=== PATIENT | male | born 1980 | race Asian ===

== ENCOUNTER 2020-06-03 12:13 | Outpatient (REF) | payer OTHER, SELFPAY ==
[2020-06-03 14:27] LABS: Alanine Aminotransferase 22 U/L (0-40); Albumin Level 4.8 g/dL (3.5-5.0); Alkaline Phosphatase 44 U/L (39-117); Anion Gap 14 (12-20); Aspartate Amino Transferase 20 U/L (5-37); Bilirubin Total 0.8 mg/dL (0.0-1.0); Blood Urea Nitrogen 14 mg/dL (9-16); Calcium 9.5 mg/dL (8.4-10.2); Carbon Dioxide 29 mmol/L (22-29); Chloride 100 mmol/L (96-108); Estimated Glomerular Filt Rate > 60; Glucose Random 121 mg/dL (60-115); Potassium 4.5 mmol/l (3.3-5.1); Sodium 138 mmol/L (135-145); Total Protein 7.6 g/dL (6.5-8.0)
[2020-06-03 14:45] LABS: Estimated Average Glucose 163 mg/dL; Hemoglobin A1c % 7.3 %
== END 2020-06-03 12:14 | disposition home or self-care (01) ==
LOC: HO.HMGCLDS 12:13
PROVIDERS: PCP Internal Medicine; Visit Provider Internal Medicine
DX: E11.9 Type 2 diabetes mellitus without complications (principal); I10 Essential (primary) hypertension; M10.9 Gout, unspecified; E78.5 Hyperlipidemia, unspecified
CPT/HCPCS: 80053; 83036; 84550

== ENCOUNTER 2020-10-06 07:03 | Outpatient (REF) | payer OTHER, SELFPAY ==
[2020-10-06 11:46] LABS: Estimated Average Glucose 160 mg/dL; Hemoglobin A1c % 7.2 %
[2020-10-06 12:03] LABS: Microalbum/Creatinine Ratio Ur 9.1 ug/mg cr
[2020-10-06 12:28] LABS: Alanine Aminotransferase 19 U/L (0-40); Alkaline Phosphatase 55 U/L (39-117); Anion Gap 16 (12-20); Aspartate Amino Transferase 14 U/L (5-37); Bilirubin Direct < 0.2 mg/dL (0.0-0.5); Bilirubin Total 0.3 mg/dL (0.0-1.0); Blood Urea Nitrogen 13 mg/dL (9-16); Calcium 10.2 mg/dL (8.4-10.2); Carbon Dioxide 28 mmol/L (22-29); Chloride 102 mmol/L (96-108); Cholesterol 163 mg/dL; Estimated Glomerular Filt Rate > 60; Glucose Fasting 102 mg/dL (60-99); HDL Cholesterol 61 mg/dL; LDL Cholesterol Calculated 66 mg/dl; Potassium 4.5 mmol/L (3.3-5.1); Sodium 141 mmol/L (135-145); Total Protein 7.9 g/dL (6.5-8.0); Triglycerides 184 mg/dL
== END 2020-10-06 07:04 | disposition home or self-care (01) ==
LOC: HO.HMGCLDS 07:03
PROVIDERS: PCP Internal Medicine; Visit Provider Internal Medicine
DX: E78.9 Disorder of lipoprotein metabolism, unspecified (principal); E13.9 Other specified diabetes mellitus without complications; I10 Essential (primary) hypertension; M10.9 Gout, unspecified
CPT/HCPCS: 36415; 80048; 80061; 80076; 82043; 83036

== ENCOUNTER 2020-11-18 09:34 | Outpatient (REF) | payer OTHER, SELFPAY ==
--- NOTE | ~2020-11-18 | XR_ITS ---
EXAMINATION: XR ELBOW, RIGHT CLINICAL INFORMATION: Injury lifting weights. Unable to bend elbow. COMPARISON: None TECHNIQUE: AP, lateral, and oblique views of the right elbow. FINDINGS: No acute fracture or dislocation. No joint space narrowing or marginal osteophytes. No large joint effusion; however, evaluation is limited secondary to patient position. Prominent soft tissue swelling posteriorly with significant soft tissue edema. Findings could indicate a distal triceps tendon injury. XR/XR elbow RT min 3V IMPRESSION: Prominent posterior soft tissue swelling with associated edema. Findings could indicate an underlying distal triceps tendon injury. No acute osseous abnormality.
== END 2020-11-18 09:35 | disposition home or self-care (01) ==
LOC: HO.HMGCX 09:34
PROVIDERS: PCP Internal Medicine; Visit Provider Nurse Practitioner Family
DX: S59.901A Unspecified injury of right elbow, initial encounter (principal); X58.XXXA Exposure to other specified factors, initial encounter; Y93.79 Activity, other specified sports and athletics; Y92.9 Unspecified place or not applicable; Y99.9 Unspecified external cause status
CPT/HCPCS: 73080

== ENCOUNTER → 2020-11-26 10:24 | Outpatient (BNVA) | payer OTHER, SELFPAY | PROVIDERS: PCP Internal Medicine; Visit Provider Physician Assistant ==

== ENCOUNTER 2021-01-06 13:40 | Outpatient (REF) | payer OTHER, SELFPAY ==
[2021-01-06 17:01] LABS: Alanine Aminotransferase 24 U/L (0-40); Albumin Level 4.9 g/dL (3.5-5.0); Alkaline Phosphatase 66 U/L (39-117); Anion Gap 13 (12-20); Aspartate Amino Transferase 18 U/L (5-37); Bilirubin Total 0.5 mg/dL (0.0-1.0); Blood Urea Nitrogen 17 mg/dL (9-16); Calcium 9.8 mg/dL (8.4-10.2); Carbon Dioxide 27 mmol/L (22-29); Chloride 103 mmol/L (96-108); Estimated Glomerular Filt Rate > 60; Glucose Random 147 mg/dL (60-115); Potassium 4.4 mmol/L (3.3-5.1); Sodium 139 mmol/L (135-145); Total Protein 7.8 g/dL (6.5-8.0)
[2021-01-06 17:03] LABS: Estimated Average Glucose 163 mg/dL; Hemoglobin A1c % 7.3 %
== END 2021-01-06 13:41 | disposition home or self-care (01) ==
LOC: HO.HMGCLDS 13:40
PROVIDERS: PCP Internal Medicine; Visit Provider Internal Medicine
DX: E78.9 Disorder of lipoprotein metabolism, unspecified (principal); E13.9 Other specified diabetes mellitus without complications; I10 Essential (primary) hypertension; M10.9 Gout, unspecified
CPT/HCPCS: 36415; 80053; 83036

== ENCOUNTER 2021-07-08 09:14 | Outpatient (REF) | payer BC, SELFPAY ==
[2021-07-08 11:41] LABS: Estimated Average Glucose 189 mg/dL; Hemoglobin A1c % 8.2 %
[2021-07-08 12:02] LABS: Alanine Aminotransferase 85 U/L (0-40); Albumin Level 5.1 g/dL (3.5-5.0); Alkaline Phosphatase 55 U/L (39-117); Anion Gap 17 (12-20); Aspartate Amino Transferase 53 U/L (5-37); Bilirubin Total 0.5 mg/dL (0.0-1.0); Blood Urea Nitrogen 14 mg/dL (9-16); Calcium 10.3 mg/dL (8.4-10.2); Carbon Dioxide 24 mmol/L (22-29); Chloride 101 mmol/L (96-108); Estimated Glomerular Filt Rate > 60; Glucose Random 123 mg/dL (60-115); Potassium 4.3 mmol/L (3.3-5.1); Sodium 138 mmol/L (135-145); Total Protein 8.3 g/dL (6.5-8.0)
== END 2021-07-08 09:15 | disposition home or self-care (01) ==
LOC: HO.HMGCLDS 09:14
PROVIDERS: PCP Internal Medicine; Visit Provider Internal Medicine
DX: E13.9 Other specified diabetes mellitus without complications (principal); E78.9 Disorder of lipoprotein metabolism, unspecified; I10 Essential (primary) hypertension
CPT/HCPCS: 36415; 80053; 83036

== ENCOUNTER 2021-10-27 07:06 | Outpatient (REF) | payer BC, SELFPAY ==
[2021-10-27 11:33] LABS: MANUAL DIFF FLAG NO
[2021-10-27 11:43] LABS: Basophils Absolute Auto 0.1 X10*3/uL (0.0-0.2); Basophils Percent Auto 0.7 % (0-2); Eosinophils Percent Auto 0.4 % (0-4); Hematocrit 49.1 % (42.0-52.0); Hemoglobin 16.4 g/dl (14.0-18.0); Imm Gran Abs Auto 0.02 X10*3/uL (0.00-0.03); Imm Gran Pct Auto 0.3 % (0.0-0.4); Lymphocytes Absolute Auto 3.3 X10*3/uL (1.2-4.9); Lymphocytes Percent Auto 47.2 % (20-40); Mean Corpuscular HGB Conc 33.4 g/dl (31.0-36.0); Mean Corpuscular Volume 83.9 fL (80.0-98.0); Mean Platelet Volume 11.1 fL (9.4-12.4); Monocytes Absolute Auto 0.4 X10*3/uL (0.1-1.2); Monocytes Percent Auto 5.6 % (2-11); Neutrophils Absolute Auto 3.2 x10*3/uL (2.0-8.3); Neutrophils Percent Auto 45.8 % (45-73); Platelet Count 261 X10*3/uL (160-400); Red Blood Count 5.85 X10*6/uL (4.60-5.80); Red Cell Distribution Width 13.2 % (11.0-16.0)
[2021-10-27 12:06] LABS: Alanine Aminotransferase 63 U/L (0-40); Albumin Level 4.9 g/dL (3.5-5.0); Alkaline Phosphatase 49 U/L (39-117); Anion Gap 14 (12-20); Aspartate Amino Transferase 49 U/L (5-37); Bilirubin Total 0.5 mg/dL (0.0-1.0); Blood Urea Nitrogen 11 mg/dL (9-16); Calcium 10.1 mg/dL (8.4-10.2); Carbon Dioxide 28 mmol/L (22-29); Chloride 103 mmol/L (96-108); Cholesterol 227 mg/dL; Estimated Glomerular Filt Rate > 60; Glucose Fasting 134 mg/dL (60-99); HDL Cholesterol 60 mg/dL; LDL Cholesterol Calculated 137 mg/dl; Potassium 4.4 mmol/L (3.3-5.1); Sodium 141 mmol/L (135-145); Total Protein 7.8 g/dL (6.5-8.0); Triglycerides 154 mg/dL
[2021-10-27 12:15] LABS: Estimated Average Glucose 180 mg/dL; Hemoglobin A1c % 7.9 %
[2021-10-27 12:20] LABS: Creatinine Urine 189.63 mg/dL; Microalbum/Creatinine Ratio Ur 35.3 ug/mg cr
[2021-11-01 12:45] LABS: Vitamin D 25-OH, D2 <4 ng/mL; Vitamin D 25-OH, D3 25 ng/mL; Vitamin D 25-OH, Total 25 ng/mL (30-100)
== END 2021-10-27 07:07 | disposition home or self-care (01) ==
LOC: HO.HMGCLDS 07:06
PROVIDERS: Visit Provider Internal Medicine
DX: E13.9 Other specified diabetes mellitus without complications (principal); E78.9 Disorder of lipoprotein metabolism, unspecified; I10 Essential (primary) hypertension; M10.9 Gout, unspecified
CPT/HCPCS: 36415; 80053; 80061; 82043; 82306; 83036; 85025

== ENCOUNTER 2022-03-05 10:51 | Outpatient (REF) | payer BC, SELFPAY ==
[2022-03-05 12:16] LABS: Alanine Aminotransferase 70 U/L (0-40); Alkaline Phosphatase 51 U/L (39-117); Anion Gap 15 (12-20); Aspartate Amino Transferase 57 U/L (5-37); Bilirubin Total 0.7 mg/dL (0.0-1.0); Blood Urea Nitrogen 14 mg/dL (9-16); Calcium 9.5 mg/dL (8.4-10.2); Carbon Dioxide 27 mmol/L (22-29); Chloride 103 mmol/L (96-108); Cholesterol 175 mg/dL; Estimated Glomerular Filt Rate > 60; Glucose Fasting 101 mg/dL (60-99); HDL Cholesterol 50 mg/dL; LDL Cholesterol Calculated 90 mg/dl; Sodium 141 mmol/L (135-145); Total Protein 7.8 g/dL (6.5-8.0); Triglycerides 179 mg/dL
[2022-03-05 12:17] LABS: Estimated Average Glucose 171 mg/dL; Hemoglobin A1c % 7.6 %
[2022-03-05 12:48] LABS: Creatinine Urine 217.19 mg/dL; Microalbum/Creatinine Ratio Ur 12.8 ug/mg cr
== END 2022-03-05 10:52 | disposition home or self-care (01) ==
LOC: HO.HMGCLDS 10:51
PROVIDERS: PCP Internal Medicine; Visit Provider Internal Medicine
DX: E78.9 Disorder of lipoprotein metabolism, unspecified (principal); I10 Essential (primary) hypertension; E13.9 Other specified diabetes mellitus without complications
CPT/HCPCS: 36415; 80053; 80061; 82043; 83036

== ENCOUNTER 2022-07-07 07:10 | Outpatient (REF) | payer BC, SELFPAY ==
[2022-07-07 11:44] LABS: Estimated Average Glucose 200 mg/dL; Hemoglobin A1c % 8.6 %
[2022-07-07 11:51] LABS: Alanine Aminotransferase 56 U/L (0-40); Alkaline Phosphatase 61 U/L (39-117); Anion Gap 15 (12-20); Aspartate Amino Transferase 42 U/L (5-37); Bilirubin Total 0.4 mg/dL (0.0-1.0); Blood Urea Nitrogen 14 mg/dL (9-16); Carbon Dioxide 27 mmol/L (22-29); Chloride 103 mmol/L (96-108); Estimated Glomerular Filt Rate > 60; Glucose Random 91 mg/dL (60-115); Potassium 4.1 mmol/L (3.3-5.1); Sodium 141 mmol/L (135-145); Total Protein 7.7 g/dL (6.5-8.0)
== END 2022-07-07 07:11 | disposition home or self-care (01) ==
LOC: HO.HMGCLDS 07:10
PROVIDERS: PCP Internal Medicine; Visit Provider Internal Medicine
DX: E13.9 Other specified diabetes mellitus without complications (principal); I10 Essential (primary) hypertension; E78.9 Disorder of lipoprotein metabolism, unspecified; R79.89 Other specified abnormal findings of blood chemistry; E66.09 Other obesity due to excess calories; M10.9 Gout, unspecified
CPT/HCPCS: 36415; 80053; 83036

== ENCOUNTER 2022-11-08 07:04 | Outpatient (REF) | payer BC, SELFPAY ==
[2022-11-08 11:35] LABS: Alanine Aminotransferase 42 U/L (0-40); Albumin Level 4.8 g/dL (3.5-5.0); Alkaline Phosphatase 57 U/L (39-117); Anion Gap 17 (12-20); Aspartate Amino Transferase 28 U/L (5-37); Bilirubin Total 0.7 mg/dL (0.0-1.0); Blood Urea Nitrogen 15 mg/dL (9-16); Calcium 9.8 mg/dL (8.4-10.2); Carbon Dioxide 26 mmol/L (22-29); Chloride 101 mmol/L (96-108); Cholesterol 158 mg/dL; Estimated Glomerular Filt Rate > 60; Glucose Fasting 190 mg/dL (60-99); HDL Cholesterol 52 mg/dL; LDL Cholesterol Calculated 80 mg/dl; Sodium 140 mmol/L (135-145); Total Protein 7.3 g/dL (6.5-8.0); Triglycerides 132 mg/dL
[2022-11-08 11:54] LABS: Estimated Average Glucose 206 mg/dL; Hemoglobin A1c % 8.8 %
== END 2022-11-08 07:05 | disposition home or self-care (01) ==
LOC: HO.HMGCLDS 07:04
PROVIDERS: PCP Internal Medicine; Visit Provider Internal Medicine
DX: E66.09 Other obesity due to excess calories (principal); E13.9 Other specified diabetes mellitus without complications; E78.9 Disorder of lipoprotein metabolism, unspecified; I10 Essential (primary) hypertension; M10.9 Gout, unspecified; R79.89 Other specified abnormal findings of blood chemistry
CPT/HCPCS: 36415; 80053; 80061; 83036

== ENCOUNTER 2023-03-07 07:07 | Outpatient (REF) | payer BC, SELFPAY ==
[2023-03-07 12:12] LABS: Estimated Average Glucose 166 mg/dL; Hemoglobin A1c % 7.4 %
[2023-03-07 12:20] LABS: Alanine Aminotransferase 41 U/L (0-40); Albumin Level 4.5 g/dL (3.5-5.0); Alkaline Phosphatase 52 U/L (39-117); Anion Gap 14 (12-20); Aspartate Amino Transferase 23 U/L (5-37); Bilirubin Total 0.3 mg/dL (0.0-1.0); Blood Urea Nitrogen 12 mg/dL (9-16); Calcium 9.4 mg/dL (8.4-10.2); Carbon Dioxide 24 mmol/L (22-29); Chloride 106 mmol/L (96-108); Estimated Glomerular Filt Rate > 60; Glucose Random 135 mg/dL (60-115); Sodium 140 mmol/L (135-145); Total Protein 7.6 g/dL (6.5-8.0)
== END 2023-03-07 07:08 | disposition home or self-care (01) ==
LOC: HO.HMGCLDS 07:07
PROVIDERS: PCP Internal Medicine; Visit Provider Internal Medicine
DX: I10 Essential (primary) hypertension (principal); M10.9 Gout, unspecified; E13.9 Other specified diabetes mellitus without complications; E78.9 Disorder of lipoprotein metabolism, unspecified; E66.09 Other obesity due to excess calories
CPT/HCPCS: 36415; 80053; 83036

== ENCOUNTER 2023-03-11 11:42 | Outpatient (AMB) | payer BC, SELFPAY ==
[2023-03-11 11:49] VITALS: BP 122/80; PULSE 107; O2SAT 96; BMI 32.8
--- NOTE | 2023-03-11 11:49 | MHC.PC.OV ---
Vital Signs 03/11/23 11:49 Height 5 ft 3 in Weight 185 lb 6 oz BMI 32.8 BP 122/80 Blood Pressure Location Rt brachial Position Sitting Pulse 107 H Pulse Source Pulse Oximeter Pulse Oximetry (%) 96 Oxygen Delivery Method Room Air Intake Visit Reasons: 4m follow up Allergies No Known Allergies [No Known Allergies*] Allergy (Verified 03/11/23 11:49) Medication List - Last Reconciled 03/11/23 by Abdelrahman Clayton MD allopurinol 300 mg PO DAILY atorvastatin 20 mg PO DAILY 90 days glipizide 5 mg PO BID 90 days lisinopril 20 mg PO DAILY 90 days metformin 1,000 mg PO BID Tobacco use date assessed: 03/11/23 Dental Screening Dental Screen Date: 03/11/23 Did you have a dental visit in the last 12 months?: Yes Did you have a dental problem in the last 6 months where you did not have access to dental care?: No Was dental information given to patient?: No HPI 4m follow up HPI Details Patient is 42-year-old male this is were month follow-up appointment Diabetes mellitus: Continue metformin 1 g 2 times a day and glipizide to 2 tablets in the morning and 1 at night Hemoglobin A1c has improved to 7.4 Lipid disorder: Continue atorvastatin 20 mg and tolerating it Hypertension: Continue lisinopril 20 mg blood pressure is very well controlled Continue allopurinol as a gout prevention and continue vitamin-D. No gout attacks Follow-up 4 months labs to be done before visit nonfasting [facility] Medical History Diabetes 1.5, managed as type 2 Gout Hypertension, essential Lipid disorder Family History Maternal Grandmother Diabetes mellitus Social History Housing: House Alcohol intake: current Alcohol intake frequency: holidays/special occasions only Patient Tobacco Use Status: Never used Tobacco e-Cigarette/Vaping Use: Never Used Current occupational status: employed Current occupation: [employer] Cognitive needs: No Hearing needs: No Vision needs: Yes Questionnaire PHQ-9 Over the last 2 weeks, how often have you been bothered by any of the following problems? 1. Little interest or pleasure in doing things: not at all 2. Feeling down, depressed, or hopeless: not at all 3. Trouble falling or staying asleep, or sleeping too much: several days 4. Feeling tired or having little energy: several days 5. Poor appetite or overeating: several days 6. Feeling bad about yourself - or that you are a failure or have let yourself or your family down: not at all 7. Trouble concentrating on things, such as reading the newspaper or watching television: not at all 8. Moving or speaking so slowly that other people could have noticed. Or the opposite - being so fidgety or restless that you have been moving around a lot more than usual: not at all 9. Thoughts that you would be better off or of hurting yourself in some way: not at all Total score: 3 Depression Screening Interpretation: Negative 33130 - PHQ-9 Billing: Yes Source: Developed by Drs. Antoine June, Susan Phillips, Tico Plummer and colleagues, with an educational meliza from [employer]. Thrive Questionnaire Date Thrive assessed: 03/11/23 I am a: Patient What is your living situation today?: I have a steady place to live Within the past 12 months, did the food you bought not last and you didn't have the money to get more?: Never true Within the past 12 months, did you worry whether your food would run out before you got money to buy more?: Never true Do you have trouble paying for medicines?: No Do you have trouble getting transportation to medical appointments?: No Do you have trouble paying your heating and electricity bill?: No Do you have trouble taking care of your child, family member or friend?: No Do you have trouble with day-to-day activities such as bathing, preparing meals, shopping, managing finances, etc.?: No Are you currently unemployed and looking for a job?: No Are you interested in more education?: No AUDIT C Alcohol Use Questionnaire (AUDIT-C) 1. How often do you have a drink containing alcohol?: Never 3. How often do you have six or more drinks on one occasion?: Never Total Score: 0 Score Reviewed/Action Taken: Yes COLT-7 AMB Questionnaire COLT-7 Date COLT - 7 assessed: 03/11/23 Feeling nervous, anxious, or on edge: 0 = Not at all Not being able to stop or control worryin = Not at all Worrying too much about different things: 0 = Not at all Trouble relaxin = Not at all Being so restless that it is hard to sit still: 0 = Not at all Becoming easily annoyed or irritable: 0 = Not at all Feeling afraid as if something awful might happen: 0 = Not at all Total COLT-7 score (0-4 normal; 5-9 mild; 10-14 moderate; 15-21 severe): 0 Source: Developed by Drs. Antoine June, Susan Phillips, Tico Plummer and colleagues, with an educational meliza from [employer]. COLT-7 Assessment Billing COLT-7 Assessment Tool: COLT-7 Assessment 62764 Review of Systems Const Denies chills and Denies fever(s) ENT Denies epistaxis and Denies nasal discharge Card Denies chest pain Resp Denies chest congestion, Denies cough and Denies hemoptysis GI Denies diarrhea and Denies nausea Skin/Breast Denies rash Neuro Reports no additional complaints Psych Reports no additional complaints Endo Reports no additional complaints Physical exam (Primary Care) Vital Signs: Last Vital Signs Pulse 107 H 03/11/23 11:49 BP 122/80 03/11/23 11:49 Pulse Ox 96 03/11/23 11:49 Oxygen Delivery Method Room Air 03/11/23 11:49 BMI result Body Mass Index 32.8 Tobacco/Smoking Status: Tobacco use Status Tobacco use date assessed 03/11/23 03/11/23 11:50 Patient Tobacco Use Status Never used Tobacco 03/11/23 11:50 e-Cigarette/Vaping Use Never Used 03/11/23 11:50 PHQ-9: PHQ-9 Score PHQ-9: Total score 3 03/11/23 12:07 Depression Screening Interpretation: Negative Thrive Assessment: Date of Thrive Assessment Date Thrive assessed 03/11/23 03/11/23 12:07 Const General: cooperative, comfortable and no acute distress Orientation/consciousness: patient oriented x3 HENMT Head: Yes normocephalic Eyes General: appearance normal, both eyes and all related structures Neck Neck: Yes supple Resp Effort & Inspection: normal respiratory effort, no cough and no stridor Cardio Rhythm: regular rhythm Heart sounds: S1 normal heart sound present and S2 normal heart sound present Skin General skin exam: turgor normal Neuro General: patient oriented x3, tone normal and moves all extremities Extrem Right lower extremity: no edema Left lower extremity: no edema Assessment and Plan Assessment & Plan (1) Hypertension, essential: Code(s): I10 - Essential (primary) hypertension (2) Diabetes 1.5, managed as type 2: Code(s): E13.9 - Other specified diabetes mellitus without complications (3) Gout: Code(s): M10.9 - Gout, unspecified (4) Lipid disorder: Code(s): E78.9 - Disorder of lipoprotein metabolism, unspecified (5) Obesity due to excess calories: Code(s): E66.09 - Other obesity due to excess calories Plan Patient is 42-year-old male this is were month follow-up appointment Diabetes mellitus: Continue metformin 1 g 2 times a day and glipizide to 2 tablets in the morning and 1 at night Hemoglobin A1c has improved to 7.4 Lipid disorder: Continue atorvastatin 20 mg and tolerating it Hypertension: Continue lisinopril 20 mg blood pressure is very well controlled Continue allopurinol as a gout prevention and continue vitamin-D. No gout attacks Follow-up 4 months labs to be done before visit nonfasting Orders: Orders Comprehensive Met. Panel 3 Months E13.9 - Other specified diabetes mellitus without complications, E66.09 - Other obesity due to excess calories, E78.9 - Disorder of lipoprotein metabolism, unspecified, I10 - Essential (primary) hypertension, M10.9 - Gout, unspecified Hemoglobin A1c 3 Months E13.9 - Other specified diabetes mellitus without complications, E66.09 - Other obesity due to excess calories, E78.9 - Disorder of lipoprotein metabolism, unspecified, I10 - Essential (primary) hypertension, M10.9 - Gout, unspecified Coding Level of Care Code Est Pt Level 4 (82643) Diagnoses Hypertension, essential I10 Diabetes 1.5, managed as type 2 E13.9 Gout M10.9 Lipid disorder E78.9 Obesity due to excess calories E66.09 Additional Codes COLT-7 Assessment Billing - COLT-7 Assessment Tool: COLT-7 Assessment 54210 ([id number])
== END 2023-03-11 12:07 | disposition home or self-care (01) ==
PROVIDERS: PCP Internal Medicine; Visit Provider Internal Medicine
DX: I10 Essential (primary) hypertension (principal); E13.9 Other specified diabetes mellitus without complications; E66.09 Other obesity due to excess calories; Z68.32 Body mass index [BMI] 32.0-32.9, adult; M10.9 Gout, unspecified; E78.9 Disorder of lipoprotein metabolism, unspecified
CPT/HCPCS: 99214

== ENCOUNTER 2023-07-11 06:43 | Outpatient (REF) | payer BC, SELFPAY ==
[2023-07-11 11:57] LABS: Estimated Average Glucose 203 mg/dL; Hemoglobin A1c % 8.7 % (<6.0)
[2023-07-11 12:15] LABS: Alanine Aminotransferase 53 U/L (0-40); Albumin Level 4.8 g/dL (3.5-5.0); Alkaline Phosphatase 55 U/L (39-117); Anion Gap 14 (12-20); Aspartate Amino Transferase 34 U/L (5-37); Bilirubin Total 0.5 mg/dL (0.0-1.0); Blood Urea Nitrogen 14 mg/dL (9-16); Calcium 9.5 mg/dL (8.4-10.2); Carbon Dioxide 21 mmol/L (22-29); Chloride 102 mmol/L (96-108); Estimated Glomerular Filt Rate > 60; Glucose Random 292 mg/dL (60-115); Sodium 133 mmol/L (135-145)
== END 2023-07-11 06:44 | disposition home or self-care (01) ==
LOC: HO.HMGCLDS 06:43
PROVIDERS: PCP Internal Medicine; Visit Provider Internal Medicine
DX: M10.9 Gout, unspecified (principal); I10 Essential (primary) hypertension; E13.9 Other specified diabetes mellitus without complications; E78.9 Disorder of lipoprotein metabolism, unspecified; E66.09 Other obesity due to excess calories
CPT/HCPCS: 36415; 80053; 83036

== ENCOUNTER 2023-07-12 10:50 | Outpatient (AMB) | payer BC, SELFPAY ==
--- NOTE | 2023-07-12 10:52 | A.OFFPC_ITS ---
Vital Signs 07/12/23 11:00 Height 5 ft 3 in Weight 187 lb 4 oz BMI 33.2 BP 134/86 Blood Pressure Location Rt brachial Position Sitting Pulse 100 Pulse Source Pulse Oximeter Pulse Oximetry (%) 97 Oxygen Delivery Method Room Air Intake Visit Reasons: Annual PE Allergies No Known Allergies [No Known Allergies*] Allergy (Verified 07/12/23 11:02) Medication List - Last Reconciled 07/12/23 by Abdelrahman Clayton MD allopurinol 300 mg PO DAILY atorvastatin 20 mg PO DAILY 90 days glipizide 10 mg PO BID 90 days lisinopril 20 mg PO DAILY 90 days metformin 1,000 mg PO BID Tobacco use date assessed: 07/12/23 Dental Screening Dental Screen Date: 07/12/23 Did you have a dental visit in the last 12 months?: No Did you have a dental problem in the last 6 months where you did not have access to dental care?: No Was dental information given to patient?: No HPI Annual PE HPI Details Physical exam appointment Labs done recently reviewed with the patient Patient is diabetic, currently taking glipizide 10 mg in the morning and 5 at night Hemoglobin A1c has gotten worse in 8 range again, I am increasing glipizide to 10 in the morning and 10 at night His sodium came back at 01:33 we will repeat it again next week Fatty liver: Stable, ALT continued to be slightly elevated. BMI is elevated patient is trying to lose weight. Follow-up 4 months, labs are needed before visit [facility] Medical History Lipid disorder Diabetes 1.5, managed as type 2 Hypertension, essential Gout Family History Maternal Grandmother Diabetes mellitus Social History Housing: House Alcohol intake: current Alcohol intake frequency: holidays/special occasions only Patient Tobacco Use Status: Never used Tobacco e-Cigarette/Vaping Use: Never Used Current occupational status: employed Current occupation: [employer] Cognitive needs: No Hearing needs: No Vision needs: Yes Questionnaire PHQ-9 Over the last 2 weeks, how often have you been bothered by any of the following problems? 1. Little interest or pleasure in doing things: not at all 2. Feeling down, depressed, or hopeless: not at all 3. Trouble falling or staying asleep, or sleeping too much: not at all 4. Feeling tired or having little energy: not at all 5. Poor appetite or overeating: not at all 6. Feeling bad about yourself - or that you are a failure or have let yourself or your family down: not at all 7. Trouble concentrating on things, such as reading the newspaper or watching television: not at all 8. Moving or speaking so slowly that other people could have noticed. Or the opposite - being so fidgety or restless that you have been moving around a lot more than usual: not at all 9. Thoughts that you would be better off or of hurting yourself in some way: not at all Total score: 0 Depression Screening Interpretation: Negative Depression Screening Done: Yes 31885 - PHQ-9 Billing: Yes Source: Developed by Drs. Antoine June, Susan Phillips, Tico Plummer and colleagues, with an educational meliza from [employer]. Thrive Questionnaire Date Thrive assessed: 07/12/23 I am a: Patient What is your living situation today?: I have a steady place to live Within the past 12 months, did the food you bought not last and you didn't have the money to get more?: Never true Within the past 12 months, did you worry whether your food would run out before you got money to buy more?: Never true Do you have trouble paying for medicines?: No Do you have trouble getting transportation to medical appointments?: No Do you have trouble paying your heating and electricity bill?: No Do you have trouble taking care of your child, family member or friend?: No Do you have trouble with day-to-day activities such as bathing, preparing meals, shopping, managing finances, etc.?: No Are you currently unemployed and looking for a job?: No Are you interested in more education?: No Please select the resources that you would like help with: None Currently or been in a relationship where the following occur: no concerns reported AUDIT C Alcohol Use Questionnaire (AUDIT-C) 1. How often do you have a drink containing alcohol?: Never 3. How often do you have six or more drinks on one occasion?: Never Total Score: 0 Score Reviewed/Action Taken: No COLT-7 AMB Questionnaire COLT-7 Date COLT - 7 assessed: 07/12/23 Feeling nervous, anxious, or on edge: 0 = Not at all Not being able to stop or control worryin = Not at all Worrying too much about different things: 0 = Not at all Trouble relaxin = Not at all Being so restless that it is hard to sit still: 0 = Not at all Becoming easily annoyed or irritable: 0 = Not at all Feeling afraid as if something awful might happen: 0 = Not at all Total COLT-7 score (0-4 normal; 5-9 mild; 10-14 moderate; 15-21 severe): 0 Source: Developed by Drs. Antoine June, Susan Phillips, Tico Plummer and colleagues, with an educational meliza from [employer]. COLT-7 Assessment Billing COLT-7 Assessment Tool: COLT-7 Assessment 04455 Review of Systems Const Denies chills, Denies fever(s) and Denies headache(s) Eyes Denies blurry vision ENT Denies headache(s), Denies nasal discharge, Denies nasal obstruction, Denies odynophagia and Denies sinus pain Card Denies chest pain at rest and Denies chest pain with activity Resp Denies cough and Denies hemoptysis GI Denies diarrhea, Denies odynophagia, Denies vomiting and Denies hematemesis Reports as per HPI Musc Denies abnormal gait Skin/Breast Reports as per HPI Neuro Denies Neuro-related abnormal movements, Denies Abnormal speech present, Denies abnormal gait, Denies headache(s) and Denies Sensory deficit (Neuro) Psych Denies mood swings and Denies paranoia Endo Reports as per HPI Vimal/Lymph Reports as per HPI Aller/Immun Reports as per HPI Physical exam (Primary Care) Vital Signs: Last Vital Signs Pulse 100 07/12/23 11:00 BP 134/86 07/12/23 11:00 Pulse Ox 97 07/12/23 11:00 Oxygen Delivery Method Room Air 07/12/23 11:00 BMI result Body Mass Index 33.2 Tobacco/Smoking Status: Tobacco use Status Tobacco use date assessed 07/12/23 07/12/23 11:03 Patient Tobacco Use Status Never used Tobacco 07/12/23 10:53 e-Cigarette/Vaping Use Never Used 07/12/23 10:53 PHQ-9: PHQ-9 Score PHQ-9: Total score 0 07/12/23 11:06 Depression Screening Interpretation: Negative Thrive Assessment: Date of Thrive Assessment Date Thrive assessed 07/12/23 07/12/23 11:06 Currently or been in a relationship where the following occur: no concerns reported Const General: cooperative, comfortable and no acute distress Orientation/consciousness: patient oriented x3 HENMT Head: Yes normocephalic and Yes atraumatic Eyes General: appearance normal, both eyes and all related structures Pupils: Equal, round and reactive pupils present EOM: EOMs intact bilaterally Neck Neck: Yes supple and No lymphadenopathy Thyroid: Thyroid normal Lymphatic: no lymphadenopathy noted Resp Effort & Inspection: normal respiratory effort and able to speak in complete sentences Auscultation: clear to auscultation bilaterally Cardio Heart sounds: S1 normal heart sound present and S2 normal heart sound present GI Palpation (GI): Soft to palpation and nontender Auscultation: normal bowel sounds General: Yes no CVA tenderness Back/Spine/Pelvis Back: no CVA tenderness Skin General skin exam: elasticity normal and turgor normal Neuro General: patient oriented x3 and gait normal Cranial nerves: Yes Equal, round and reactive pupils present Speech: No Abnormal speech present Sensory Exam: No Sensory deficit (Neuro) Coordination: tandem gait normal and Romberg test negative Extrem General: Yes normal exam except as noted and No edema Assessment and Plan Assessment & Plan (1) Encounter for general adult medical examination with abnormal findings: Code(s): Z00.01 - Encounter for general adult medical examination with abnormal findings (2) Diabetes mellitus type 2 in obese: Code(s): E11.69 - Type 2 diabetes mellitus with other specified complication; E66.9 - Obesity, unspecified (3) Hyponatremia: Code(s): E87.1 - Hypo-osmolality and hyponatremia (4) LFT elevation: Code(s): R79.89 - Other specified abnormal findings of blood chemistry (5) Obesity due to excess calories: Code(s): E66.09 - Other obesity due to excess calories Qualifiers: Obesity classification: adult class 1 (BMI 30 - 34.9) Serious obesity comorbidity presence: with serious comorbidity Body mass index: BMI 33.0-33.9 Qualified Code(s): E66.09 - Other obesity due to excess calories; Z68.33 - Body mass index [BMI] 33.0-33.9, adult (6) Lipid disorder: Code(s): E78.9 - Disorder of lipoprotein metabolism, unspecified (7) Hypertension, essential: Code(s): I10 - Essential (primary) hypertension (8) Gout: Code(s): M10.9 - Gout, unspecified Qualifiers: Gout site: unspecified site Gout etiology: idiopathic Chronicity: chronic Presence of tophus: without tophus Qualified Code(s): M1A.00X0 - Idiopathic chronic gout, unspecified site, without tophus (tophi) Plan Physical exam appointment Labs done recently reviewed with the patient Patient is diabetic, currently taking glipizide 10 mg in the morning and 5 at night Hemoglobin A1c has gotten worse in 8 range again, I am increasing glipizide to 10 in the morning and 10 at night His sodium came back at 01:33 we will repeat it again next week Fatty liver: Stable, ALT continued to be slightly elevated. BMI is elevated patient is trying to lose weight. Follow-up 4 months, labs are needed before visit Orders: Orders Hemoglobin A1c 3 Months E11.69 - Type 2 diabetes mellitus with other specified complication, E66.09 - Other obesity due to excess calories, E66.9 - Obesity, unspecified, E78.9 - Disorder of lipoprotein metabolism, unspecified, I10 - Essential (primary) hypertension, M10.9 - Gout, unspecified, R79.89 - Other specified abnormal findings of blood chemistry, Z00.01 - Encounter for general adult medical examination with abnormal findings Comprehensive Met. Panel 3 Months E11.69 - Type 2 diabetes mellitus with other specified complication, E66.09 - Other obesity due to excess calories, E66.9 - Obesity, unspecified, E78.9 - Disorder of lipoprotein metabolism, unspecified, I10 - Essential (primary) hypertension, M10.9 - Gout, unspecified, R79.89 - Other specified abnormal findings of blood chemistry, Z00.01 - Encounter for general adult medical examination with abnormal findings LDL Cholesterol Direct 3 Months E11.69 - Type 2 diabetes mellitus with other specified complication, E66.09 - Other obesity due to excess calories, E66.9 - Obesity, unspecified, E78.9 - Disorder of lipoprotein metabolism, unspecified, I10 - Essential (primary) hypertension, M10.9 - Gout, unspecified, R79.89 - Other specified abnormal findings of blood chemistry, Z00.01 - Encounter for general adult medical examination with abnormal findings Electrolytes 5 Days E87.1 - Hypo-osmolality and hyponatremia Complete Blood Count Auto Diff 3 Months E11.69 - Type 2 diabetes mellitus with other specified complication, E66.09 - Other obesity due to excess calories, E66.9 - Obesity, unspecified, E78.9 - Disorder of lipoprotein metabolism, unspecified, I10 - Essential (primary) hypertension, M10.9 - Gout, unspecified, R79.89 - Other specified abnormal findings of blood chemistry, Z00.01 - Encounter for general adult medical examination with abnormal findings Microalbumin, Random (w Creat) 3 Months E11.69 - Type 2 diabetes mellitus with other specified complication, E66.09 - Other obesity due to excess calories, E66.9 - Obesity, unspecified, E78.9 - Disorder of lipoprotein metabolism, unspecified, I10 - Essential (primary) hypertension, M10.9 - Gout, unspecified, R79.89 - Other specified abnormal findings of blood chemistry, Z00.01 - Encounter for general adult medical examination with abnormal findings Medications: Changed From glipizide Take 2 tablets in the morning and 1 at night 5 mg PO BID 90 days 270 tabs 0RF To glipizide Take 2 tablets in the morning and 1 at night 10 mg PO BID 180 tabs 0RF 90 days Coding Level of Care Code Est Pt [facility] [place] Care [id number]) Diagnoses Encounter for general adult medical examination with abnormal findings Z00.01 Diabetes mellitus type 2 in obese E11.69; E66.9 Hyponatremia E87.1 LFT elevation R79.89 Class 1 obesity due to excess calories with serious comorbidity and body mass index (BMI) of 33.0 to 33.9 in adult E66.09; Z68.33 Obesity classification: adult class 1 (BMI 30 - 34.9) Serious obesity comorbidity presence: with serious comorbidity Body mass index: BMI 33.0-33.9 Lipid disorder E78.9 Hypertension, essential I10 Idiopathic chronic gout without tophus, unspecified site M1A.00X0 Gout site: unspecified site Gout etiology: idiopathic Chronicity: chronic Presence of tophus: without tophus Additional Codes COLT-7 Assessment Billing - COLT-7 Assessment Tool: COLT-7 Assessment [id number] ([id number])
[2023-07-12 11:00] VITALS: BP 134/86; PULSE 100; O2SAT 97; BMI 33.2
== END 2023-07-12 12:40 | disposition home or self-care (01) ==
PROVIDERS: PCP Internal Medicine; Visit Provider Internal Medicine
DX: Z00.01 Encounter for general adult medical examination with abnormal findings (principal); E11.69 Type 2 diabetes mellitus with other specified complication; E66.09 Other obesity due to excess calories; Z68.33 Body mass index [BMI] 33.0-33.9, adult; E66.9 Obesity, unspecified; E87.1 Hypo-osmolality and hyponatremia; R79.89 Other specified abnormal findings of blood chemistry; E78.9 Disorder of lipoprotein metabolism, unspecified; I10 Essential (primary) hypertension; M1A.00X0 Idiopathic chronic gout, unspecified site, without tophus (tophi)
CPT/HCPCS: 99396

== ENCOUNTER 2023-11-10 06:45 | Outpatient (REF) | payer BC, SELFPAY ==
[2023-11-10 10:15] LABS: MANUAL DIFF FLAG NO
[2023-11-10 10:24] LABS: Basophils Absolute Auto 0.1 X10*3/uL (0.0-0.2); Basophils Percent Auto 0.6 % (0-2); Eosinophils Percent Auto 0.3 % (0-4); Hematocrit 49.5 % (42.0-52.0); Hemoglobin 17.1 g/dl (14.0-18.0); Imm Gran Abs Auto 0.02 X10*3/uL (0.00-0.03); Imm Gran Pct Auto 0.3 % (0.0-0.4); Lymphocytes Absolute Auto 2.6 X10*3/uL (1.2-4.9); Mean Corpuscular HGB Conc 34.5 g/dl (31.0-36.0); Mean Corpuscular Hemoglobin 28.6 pg (27.0-33.0); Mean Corpuscular Volume 82.8 fL (80.0-98.0); Mean Platelet Volume 10.8 fL (9.4-12.4); Monocytes Absolute Auto 0.5 X10*3/uL (0.1-1.2); Monocytes Percent Auto 5.9 % (2-11); Neutrophils Absolute Auto 4.7 x10*3/uL (2.0-8.3); Neutrophils Percent Auto 59.9 % (45-73); Platelet Count 259 X10*3/uL (160-400); Red Blood Count 5.98 X10*6/uL (4.60-5.80); Red Cell Distribution Width 13.4 % (11.0-16.0); White Blood Count 7.8 X10*3/uL (4.8-10.8)
[2023-11-10 10:58] LABS: Estimated Average Glucose 203 mg/dL; Hemoglobin A1c % 8.7 % (<6.0)
[2023-11-10 11:11] LABS: Creatinine Urine 135.17 mg/dL; Microalbum/Creatinine Ratio Ur 123.5 ug/mg cr (<30)
[2023-11-10 11:19] LABS: Alanine Aminotransferase 53 U/L (0-40); Albumin Level 4.9 g/dL (3.5-5.0); Alkaline Phosphatase 50 U/L (39-117); Anion Gap 15 (12-20); Aspartate Amino Transferase 35 U/L (5-37); Bilirubin Total 0.5 mg/dL (0.0-1.0); Blood Urea Nitrogen 16 mg/dL (9-16); Calcium 9.9 mg/dL (8.4-10.2); Carbon Dioxide 23 mmol/L (22-29); Chloride 105 mmol/L (96-108); Estimated Glomerular Filt Rate > 60; Glucose Random 164 mg/dL (60-115); Potassium 3.8 mmol/L (3.3-5.1); Sodium 139 mmol/L (135-145); Total Protein 7.9 g/dL (6.5-8.0)
[2023-11-11 13:12] LABS: LDL Cholesterol Direct 107 mg/dL (<100)
== END 2023-11-10 06:46 | disposition home or self-care (01) ==
LOC: HO.HMGCLDS 06:45
PROVIDERS: PCP Internal Medicine; Visit Provider Internal Medicine
DX: Z00.01 Encounter for general adult medical examination with abnormal findings (principal); E11.69 Type 2 diabetes mellitus with other specified complication; R79.89 Other specified abnormal findings of blood chemistry; E66.09 Other obesity due to excess calories; E78.9 Disorder of lipoprotein metabolism, unspecified; M10.9 Gout, unspecified; I10 Essential (primary) hypertension
CPT/HCPCS: 36415; 80053; 82043; 82570; 83036; 83721; 85025

== ENCOUNTER 2023-11-11 09:00 | Outpatient (AMB) | payer BC, SELFPAY ==
--- NOTE | 2023-11-11 09:01 | MHC.PC.OV ---
Vital Signs 11/11/23 09:02 Height 5 ft 3 in Weight 188 lb BMI 33.3 BP 110/78 Blood Pressure Location Rt brachial Position Sitting Pulse 109 H Pulse Source Pulse Oximeter Pulse Oximetry (%) 97 Oxygen Delivery Method Room Air Intake Visit Reasons: 8 month follow up Allergies No Known Allergies [No Known Allergies*] Allergy (Verified 11/11/23 09:04) Medication List - Last Reconciled 11/11/23 by Abdelrahman Clayton MD allopurinol 300 mg PO DAILY atorvastatin 20 mg PO DAILY 90 days glipizide 10 mg PO BID 90 days lisinopril 20 mg PO DAILY 90 days metformin 1,000 mg PO BID Tobacco use date assessed: 11/11/23 Dental Screening Dental Screen Date: 11/11/23 Did you have a dental visit in the last 12 months?: No Did you have a dental problem in the last 6 months where you did not have access to dental care?: No Was dental information given to patient?: No HPI 8 month follow up HPI Details Patient is 42-year-old male this is were month follow-up appointment Diabetes mellitus: Patient had labs done recently his hemoglobin A1c continued to be 8.7 Currently he is taking metformin 1 g b.i.d. and glipizide 10 mg b.i.d., I have added pioglitazone 15 mg once a day Patient is to start monitoring his blood sugar in the morning, if it stay above 150, he may double the dose of pioglitazone and let me know Lipid disorder: Continue atorvastatin 20 mg and tolerating it Hypertension: Continue lisinopril 20 mg blood pressure is stable Continue allopurinol as a gout prevention and continue vitamin-D. No gout attacks Patient has appointment in March for follow-up, labs are needed before visit He also is due for eye exam, referral placed BMI is elevated need to lose weight [facility] Medical History Lipid disorder Diabetes 1.5, managed as type 2 Hypertension, essential Gout Family History Maternal Grandmother Diabetes mellitus Social History Housing: House Alcohol intake: current Alcohol intake frequency: holidays/special occasions only Patient Tobacco Use Status: Never used Tobacco e-Cigarette/Vaping Use: Never Used Current occupational status: employed Current occupation: [employer] Cognitive needs: No Hearing needs: No Vision needs: Yes Questionnaire PHQ-9 Over the last 2 weeks, how often have you been bothered by any of the following problems? 1. Little interest or pleasure in doing things: not at all 2. Feeling down, depressed, or hopeless: not at all 3. Trouble falling or staying asleep, or sleeping too much: not at all 4. Feeling tired or having little energy: not at all 5. Poor appetite or overeating: not at all 6. Feeling bad about yourself - or that you are a failure or have let yourself or your family down: not at all 7. Trouble concentrating on things, such as reading the newspaper or watching television: not at all 8. Moving or speaking so slowly that other people could have noticed. Or the opposite - being so fidgety or restless that you have been moving around a lot more than usual: not at all 9. Thoughts that you would be better off or of hurting yourself in some way: not at all Total score: 0 Depression Screening Interpretation: Negative Depression Screening Done: Yes 65528 - PHQ-9 Billing: Yes Source: Developed by Drs. Antoine June, Susan Phillips, Tico Plummer and colleagues, with an educational meliza from [employer]. Thrive Questionnaire Date Thrive assessed: 07/12/23 AUDIT C Alcohol Use Questionnaire (AUDIT-C) 1. How often do you have a drink containing alcohol?: Never Total Score: 0 COLT-7 AMB Questionnaire COLT-7 Date COLT - 7 assessed: 07/12/23 Source: Developed by Drs. Antoine June, Tico Banda and colleagues, with an educational meliza from [employer]. Review of Systems Const Denies chills and Denies fever(s) ENT Denies epistaxis and Denies nasal discharge Card Denies chest pain Resp Denies chest congestion, Denies cough and Denies hemoptysis GI Denies diarrhea and Denies nausea Skin/Breast Denies rash Neuro Reports no additional complaints Psych Reports no additional complaints Endo Reports no additional complaints Physical exam (Primary Care) Vital Signs: Last Vital Signs Pulse 109 H 11/11/23 09:02 BP 110/78 04/12/24 09:02 Pulse Ox 97 11/11/23 09:02 Oxygen Delivery Method Room Air 11/11/23 09:02 BMI result Body Mass Index 33.3 Tobacco/Smoking Status: Tobacco use Status Tobacco use date assessed 11/11/23 11/11/23 09:07 Patient Tobacco Use Status Never used Tobacco 11/11/23 09:02 e-Cigarette/Vaping Use Never Used 11/11/23 09:02 Depression Screening Interpretation: Negative Thrive Assessment: Date of Thrive Assessment Date Thrive assessed 07/12/23 11/11/23 09:02 Const General: cooperative, comfortable and no acute distress Orientation/consciousness: patient oriented x3 HENMT Head: Yes normocephalic Eyes General: appearance normal, both eyes and all related structures Neck Neck: Yes supple Resp Effort & Inspection: normal respiratory effort, no cough and no stridor Cardio Rhythm: regular rhythm Heart sounds: S1 normal heart sound present and S2 normal heart sound present Skin General skin exam: turgor normal Neuro General: patient oriented x3, tone normal and moves all extremities Extrem Right lower extremity: no edema Left lower extremity: no edema Assessment and Plan Assessment & Plan (1) Diabetes 1.5, managed as type 2: Code(s): E13.9 - Other specified diabetes mellitus without complications (2) Hypertension, essential: Code(s): I10 - Essential (primary) hypertension (3) LFT elevation: Code(s): R79.89 - Other specified abnormal findings of blood chemistry (4) Obesity due to excess calories: Code(s): E66.09 - Other obesity due to excess calories Qualifiers: Obesity classification: adult class 1 (BMI 30 - 34.9) Serious obesity comorbidity presence: with serious comorbidity Body mass index: BMI 33.0-33.9 Qualified Code(s): E66.09 - Other obesity due to excess calories; Z68.33 - Body mass index [BMI] 33.0-33.9, adult (5) Lipid disorder: Code(s): E78.9 - Disorder of lipoprotein metabolism, unspecified (6) Gout: Code(s): M10.9 - Gout, unspecified Qualifiers: Gout site: unspecified site Gout etiology: idiopathic Chronicity: chronic Presence of tophus: without tophus Qualified Code(s): M1A.00X0 - Idiopathic chronic gout, unspecified site, without tophus (tophi) Plan Patient is 42-year-old male this is were month follow-up appointment Diabetes mellitus: Patient had labs done recently his hemoglobin A1c continued to be 8.7 Currently he is taking metformin 1 g b.i.d. and glipizide 10 mg b.i.d., I have added pioglitazone 15 mg once a day Patient is to start monitoring his blood sugar in the morning, if it stay above 150, he may double the dose of pioglitazone and let me know Lipid disorder: Continue atorvastatin 20 mg and tolerating it ALT is slightly elevated but stable Hypertension: Continue lisinopril 20 mg blood pressure is stable Continue allopurinol as a gout prevention and continue vitamin-D. No gout attacks Patient has appointment in March for follow-up, labs are needed before visit He also is due for eye exam, referral placed BMI is elevated need to lose weight Orders: Orders Hemoglobin A1c 3 Months E13.9 - Other specified diabetes mellitus without complications, E66.09 - Other obesity due to excess calories, E78.9 - Disorder of lipoprotein metabolism, unspecified, I10 - Essential (primary) hypertension, M1A.00X0 - Idiopathic chronic gout, unspecified site, without tophus (tophi), R79.89 - Other specified abnormal findings of blood chemistry, Z68.33 - Body mass index [BMI] 33.0-33.9, adult Complete Blood Count Auto Diff 3 Months E13.9 - Other specified diabetes mellitus without complications, E66.09 - Other obesity due to excess calories, E78.9 - Disorder of lipoprotein metabolism, unspecified, I10 - Essential (primary) hypertension, M1A.00X0 - Idiopathic chronic gout, unspecified site, without tophus (tophi), R79.89 - Other specified abnormal findings of blood chemistry, Z68.33 - Body mass index [BMI] 33.0-33.9, adult Comprehensive [place]. Panel Fast 3 Months E13.9 - Other specified diabetes mellitus without complications, E66.09 - Other obesity due to excess calories, E78.9 - Disorder of lipoprotein metabolism, unspecified, I10 - Essential (primary) hypertension, M1A.00X0 - Idiopathic chronic gout, unspecified site, without tophus (tophi), R79.89 - Other specified abnormal findings of blood chemistry, Z68.33 - Body mass index [BMI] 33.0-33.9, adult Lipid Panel 3 Months E13.9 - Other specified diabetes mellitus without complications, E66.09 - Other obesity due to excess calories, E78.9 - Disorder of lipoprotein metabolism, unspecified, I10 - Essential (primary) hypertension, M1A.00X0 - Idiopathic chronic gout, unspecified site, without tophus (tophi), R79.89 - Other specified abnormal findings of blood chemistry, Z68.33 - Body mass index [BMI] 33.0-33.9, adult Microalbumin, Random (w Creat) 3 Months E13.9 - Other specified diabetes mellitus without complications, E66.09 - Other obesity due to excess calories, E78.9 - Disorder of lipoprotein metabolism, unspecified, I10 - Essential (primary) hypertension, M1A.00X0 - Idiopathic chronic gout, unspecified site, without tophus (tophi), R79.89 - Other specified abnormal findings of blood chemistry, Z68.33 - Body mass index [BMI] 33.0-33.9, adult Referrals Ophthalmology Referral E13.9 - Other specified diabetes mellitus without complications Medications: New pioglitazone 15 mg PO DAILY 90 tabs 0RF Coding Level of Care Code Est Pt Level 4 (29241) Diagnoses Diabetes 1.5, managed as type 2 E13.9 Hypertension, essential I10 LFT elevation R79.89 Class 1 obesity due to excess calories with serious comorbidity and body mass index (BMI) of 33.0 to 33.9 in adult E66.09; Z68.33 Obesity classification: adult class 1 (BMI 30 - 34.9) Serious obesity comorbidity presence: with serious comorbidity Body mass index: BMI 33.0-33.9 Lipid disorder E78.9 Idiopathic chronic gout without tophus, unspecified site M1A.00X0 Gout site: unspecified site Gout etiology: idiopathic Chronicity: chronic Presence of tophus: without tophus
[2023-11-11 09:02] VITALS: BP 110/78; PULSE 109; O2SAT 97; BMI 33.3
== END 2023-11-11 16:38 | disposition home or self-care (01) ==
PROVIDERS: PCP Internal Medicine; Visit Provider Internal Medicine
DX: E13.9 Other specified diabetes mellitus without complications (principal); I10 Essential (primary) hypertension; R79.89 Other specified abnormal findings of blood chemistry; E66.09 Other obesity due to excess calories; Z68.33 Body mass index [BMI] 33.0-33.9, adult; E78.9 Disorder of lipoprotein metabolism, unspecified; M1A.00X0 Idiopathic chronic gout, unspecified site, without tophus (tophi)
CPT/HCPCS: 99214

== ENCOUNTER 2024-04-03 06:50 | Outpatient (REF) | payer BC, SELFPAY ==
[2024-04-03 10:07] LABS: MANUAL DIFF FLAG NO
[2024-04-03 10:17] LABS: Basophils Absolute Auto 0.1 X10*3/uL (0.0-0.2); Basophils Percent Auto 0.8 % (0-2); Eosinophils Absolute Auto 0.1 X10*3/uL (0.0-0.4); Eosinophils Percent Auto 1.7 % (0-4); Hematocrit 51.8 % (42.0-52.0); Hemoglobin 17.2 g/dl (14.0-18.0); Imm Gran Abs Auto 0.02 X10*3/uL (0.00-0.03); Imm Gran Pct Auto 0.3 % (0.0-0.4); Lymphocytes Absolute Auto 4.1 X10*3/uL (1.2-4.9); Lymphocytes Percent Auto 54.3 % (20-40); Mean Corpuscular HGB Conc 33.2 g/dl (31.0-36.0); Mean Corpuscular Hemoglobin 28.7 pg (27.0-33.0); Mean Corpuscular Volume 86.5 fL (80.0-98.0); Mean Platelet Volume 11.1 fL (9.4-12.4); Monocytes Absolute Auto 0.4 X10*3/uL (0.1-1.2); Monocytes Percent Auto 5.4 % (2-11); Neutrophils Absolute Auto 2.8 x10*3/uL (2.0-8.3); Neutrophils Percent Auto 37.5 % (45-73); Platelet Count 234 X10*3/uL (160-400); Red Blood Count 5.99 X10*6/uL (4.60-5.80); Red Cell Distribution Width 13.3 % (11.0-16.0); White Blood Count 7.6 X10*3/uL (4.8-10.8)
[2024-04-03 10:26] LABS: Alanine Aminotransferase 43 U/L (0-40); Albumin Level 4.6 g/dL (3.5-5.0); Alkaline Phosphatase 56 U/L (39-117); Anion Gap 15 (12-20); Aspartate Amino Transferase 25 U/L (5-37); Bilirubin Total 0.5 mg/dL (0.0-1.0); Blood Urea Nitrogen 13 mg/dL (9-16); Calcium 10.3 mg/dL (8.4-10.2); Carbon Dioxide 28 mmol/L (22-29); Chloride 101 mmol/L (96-108); Cholesterol 174 mg/dL (<200); Estimated Glomerular Filt Rate > 60; Glucose Fasting 158 mg/dL (60-99); HDL Cholesterol 57 mg/dL (>40); LDL Cholesterol Calculated 75 mg/dL (<100); Sodium 140 mmol/L (135-145); Total Protein 7.6 g/dL (6.5-8.0); Triglycerides 210 mg/dL (<150)
[2024-04-03 10:27] LABS: Estimated Average Glucose 200 mg/dL; Hemoglobin A1c % 8.6 % (<6.0)
[2024-04-03 11:08] LABS: Creatinine Urine 165.38 mg/dL; Microalbum/Creatinine Ratio Ur 229.1 ug/mg cr (<30)
== END 2024-04-03 06:51 | disposition home or self-care (01) ==
LOC: HO.HMGCLDS 06:50
PROVIDERS: PCP Internal Medicine; Visit Provider Internal Medicine
DX: M1A.00X0 Idiopathic chronic gout, unspecified site, without tophus (tophi) (principal); I10 Essential (primary) hypertension; E13.9 Other specified diabetes mellitus without complications; E78.9 Disorder of lipoprotein metabolism, unspecified; E66.09 Other obesity due to excess calories; Z68.33 Body mass index [BMI] 33.0-33.9, adult; R79.89 Other specified abnormal findings of blood chemistry
CPT/HCPCS: 36415; 80053; 80061; 82043; 82570; 83036; 85025

== ENCOUNTER 2024-04-06 08:42 | Outpatient (AMB) | payer BC, SELFPAY ==
[2024-04-06 08:46] VITALS: BP 130/86; PULSE 85; O2SAT 95; BMI 33.9
--- NOTE | 2024-04-06 08:46 | A.OFFPC_ITS ---
Vital Signs 04/06/24 08:46 Height 5 ft 3 in Weight 191 lb 2 oz BMI 33.9 BP 130/86 Blood Pressure Location Rt brachial Position Sitting Pulse 85 Pulse Source Pulse Oximeter Pulse Oximetry (%) 95 Oxygen Delivery Method Room Air Intake Visit Reasons: 8 month follow up Allergies No Known Allergies [No Known Allergies*] Allergy (Verified 04/06/24 08:48) Medication List - Last Reconciled 04/06/24 by Abdelrahman Clayton MD allopurinol 300 mg PO DAILY atorvastatin 20 mg PO DAILY 90 days glipizide 10 mg PO BID 90 days lisinopril 20 mg PO DAILY 90 days metformin 1,000 mg PO BID pioglitazone 15 mg PO DAILY Tobacco use date assessed: 04/06/24 Dental Screening Dental Screen Date: 04/06/24 Did you have a dental visit in the last 12 months?: Yes Did you have a dental problem in the last 6 months where you did not have access to dental care?: No Was dental information given to patient?: Patient has dentist HPI 8 month follow up HPI Details Patient is 43-year-old male this is were month follow-up appointment Diabetes mellitus: his hemoglobin A1c came back 8.6 He is taking metformin and pioglitazone as prescribed but not taking glipizide as prescribed Patient says that he takes 2 tablets of glipizide in the morning his blood sugar goes down so he is only taking 1 tablet in the morning and 1 at night. Patient says that he is aware that his diet is causing the problem because he eats lot of rice. He promised to work on his diet and his weight for next time Order placed to be done fasting in July he is booked for physical exam that Lipid disorder: Continue atorvastatin 20 mg and tolerating it ALT is slightly elevated but stable Hypertension: Continue lisinopril 20 mg blood pressure is stable Continue allopurinol as a gout prevention and continue vitamin-D. No gout attacks PFSH Medical History Lipid disorder Diabetes 1.5, managed as type 2 Hypertension, essential Gout Family History Maternal Grandmother Diabetes mellitus Social History Housing: House Alcohol intake: current Alcohol intake frequency: holidays/special occasions only Patient Tobacco Use Status: Never used Tobacco e-Cigarette/Vaping Use: Never Used service: No Current occupational status: employed Current occupation: [employer] Cognitive needs: No Hearing needs: No Vision needs: Yes Questionnaire PHQ-9 Over the last 2 weeks, how often have you been bothered by any of the following problems? 1. Little interest or pleasure in doing things: not at all 2. Feeling down, depressed, or hopeless: not at all 3. Trouble falling or staying asleep, or sleeping too much: not at all 4. Feeling tired or having little energy: not at all 5. Poor appetite or overeating: not at all 6. Feeling bad about yourself - or that you are a failure or have let yourself or your family down: not at all 7. Trouble concentrating on things, such as reading the newspaper or watching television: not at all 8. Moving or speaking so slowly that other people could have noticed. Or the opposite - being so fidgety or restless that you have been moving around a lot more than usual: not at all 9. Thoughts that you would be better off or of hurting yourself in some way: not at all Total score: 0 Depression Screening Interpretation: Negative Depression Screening Done: Yes 18670 - PHQ-9 Billing: Yes Source: Developed by Drs. Antoine June, Susan Phillips, Tico Plummer and colleagues, with an educational meliza from [employer]. Thrive Questionnaire Date Thrive assessed: 04/06/24 I am a: Patient What is your living situation today?: I have a steady place to live Within the past 12 months, did the food you bought not last and you didn't have the money to get more?: Never true Within the past 12 months, did you worry whether your food would run out before you got money to buy more?: Never true Do you have trouble paying for medicines?: No Do you have trouble getting transportation to medical appointments?: No Do you have trouble paying your heating and electricity bill?: No Do you have trouble taking care of your child, family member or friend?: No Do you have trouble with day-to-day activities such as bathing, preparing meals, shopping, managing finances, etc.?: No Are you currently unemployed and looking for a job?: No Are you interested in more education?: No Please select the resources that you would like help with: None Currently or been in a relationship where the following occur: No concerns reported THRIVE Score: 0 AUDIT C Alcohol Use Questionnaire (AUDIT-C) 1. How often do you have a drink containing alcohol?: Monthly or less 2. How many drinks containing alcohol do you have on a typical day when you are drinking?: 1 or 2 3. How often do you have six or more drinks on one occasion?: Never Total Score: 1 Score Reviewed/Action Taken: Yes COLT-7 AMB Questionnaire COLT-7 Date COLT - 7 assessed: 04/06/24 Feeling nervous, anxious, or on edge: 0 = Not at all Not being able to stop or control worryin = Not at all Worrying too much about different things: 0 = Not at all Trouble relaxin = Not at all Being so restless that it is hard to sit still: 0 = Not at all Becoming easily annoyed or irritable: 0 = Not at all Feeling afraid as if something awful might happen: 0 = Not at all Total COLT-7 score (0-4 normal; 5-9 mild; 10-14 moderate; 15-21 severe): 0 Source: Developed by Drs. Antoine June, Susan Phillips, Tico Plummer and colleagues, with an educational meliza from [employer]. COLT-7 Assessment Billing COLT-7 Assessment Tool: COLT-7 Assessment 63622 Review of Systems Const Denies chills and Denies fever(s) ENT Denies epistaxis and Denies nasal discharge Card Denies chest pain Resp Denies chest congestion, Denies cough and Denies hemoptysis GI Denies diarrhea and Denies nausea Skin/Breast Denies rash Neuro Reports no additional complaints Psych Reports no additional complaints Endo Reports no additional complaints Physical exam (Primary Care) Vital Signs: Last Vital Signs Pulse 85 04/06/24 08:46 BP 130/86 04/06/24 08:46 Pulse Ox 95 04/06/24 08:46 Oxygen Delivery Method Room Air 04/06/24 08:46 BMI result Body Mass Index 33.9 Tobacco/Smoking Status: Tobacco use Status Tobacco use date assessed 09/06/24 09/06/24 08:49 Patient Tobacco Use Status Never used Tobacco 04/06/24 08:49 e-Cigarette/Vaping Use Never Used 04/06/24 08:49 PHQ-9: PHQ-9 Score PHQ-9: Total score 0 04/06/24 08:49 Depression Screening Interpretation: Negative Thrive Assessment: Date of Thrive Assessment Date Thrive assessed 04/06/24 04/06/24 08:49 Currently or been in a relationship where the following occur: No concerns reported Const General: cooperative, comfortable and no acute distress Orientation/consciousness: patient oriented x3 HENMT Head: Yes normocephalic Eyes General: appearance normal, both eyes and all related structures Neck Neck: Yes supple Resp Effort & Inspection: normal respiratory effort, no cough and no stridor Cardio Rhythm: regular rhythm Heart sounds: S1 normal heart sound present and S2 normal heart sound present Skin General skin exam: turgor normal Neuro General: patient oriented x3, tone normal and moves all extremities Extrem Right lower extremity: no edema Left lower extremity: no edema Assessment and Plan Assessment & Plan (1) Hypertension, essential: Code(s): I10 - Essential (primary) hypertension (2) Diabetes 1.5, managed as type 2: Code(s): E13.9 - Other specified diabetes mellitus without complications (3) Lipid disorder: Code(s): E78.9 - Disorder of lipoprotein metabolism, unspecified (4) Obesity due to excess calories: Code(s): E66.09 - Other obesity due to excess calories Qualifiers: Body mass index: BMI 33.0-33.9 Obesity classification: adult class 1 (BMI 30 - 34.9) Serious obesity comorbidity presence: with serious comorbidity Qualified Code(s): E66.09 - Other obesity due to excess calories; Z68.33 - Body mass index [BMI] 33.0-33.9, adult (5) Microalbuminuria: Code(s): R80.9 - Proteinuria, unspecified (6) LFT elevation: Code(s): R79.89 - Other specified abnormal findings of blood chemistry (7) Gout: Code(s): M10.9 - Gout, unspecified Qualifiers: Gout site: unspecified site Gout etiology: idiopathic Chronicity: chronic Presence of tophus: without tophus Qualified Code(s): M1A.00X0 - Idiopathic chronic gout, unspecified site, without tophus (tophi) Plan Patient is 43-year-old male this is were month follow-up appointment Diabetes mellitus: his hemoglobin A1c came back 8.6 He is taking metformin and pioglitazone as prescribed but not taking glipizide as prescribed Patient says that he takes 2 tablets of glipizide in the morning his blood sugar goes down so he is only taking 1 tablet in the morning and 1 at night. Patient says that he is aware that his diet is causing the problem because he eats lot of rice. He promised to work on his diet and his weight for next time Order placed to be done fasting in July he is booked for physical exam that Lipid disorder: Continue atorvastatin 20 mg and tolerating it ALT is slightly elevated but stable Hypertension: Continue lisinopril 20 mg blood pressure is stable Continue allopurinol as a gout prevention and continue vitamin-D. No gout attacks Orders: Orders Comprehensive [place]. Panel Fast 3 Months E13.9 - Other specified diabetes mellitus without complications, E66.09 - Other obesity due to excess calories, E78.9 - Disorder of lipoprotein metabolism, unspecified, I10 - Essential (primary) hypertension, R80.9 - Proteinuria, unspecified, Z68.33 - Body mass index [BMI] 33.0-33.9, adult Lipid Panel 3 Months E13.9 - Other specified diabetes mellitus without complications, E66.09 - Other obesity due to excess calories, E78.9 - Disorder of lipoprotein metabolism, unspecified, I10 - Essential (primary) hypertension, R80.9 - Proteinuria, unspecified, Z68.33 - Body mass index [BMI] 33.0-33.9, adult Hemoglobin A1c 3 Months E13.9 - Other specified diabetes mellitus without complications, E66.09 - Other obesity due to excess calories, E78.9 - Disorder of lipoprotein metabolism, unspecified, I10 - Essential (primary) hypertension, R80.9 - Proteinuria, unspecified, Z68.33 - Body mass index [BMI] 33.0-33.9, adult Complete Blood Count Auto Diff 3 Months E13.9 - Other specified diabetes mellitus without complications, E66.09 - Other obesity due to excess calories, E78.9 - Disorder of lipoprotein metabolism, unspecified, I10 - Essential (primary) hypertension, R80.9 - Proteinuria, unspecified, Z68.33 - Body mass index [BMI] 33.0-33.9, adult Medications: Changed From glipizide Take 2 tablets in the morning and 1 at night 10 mg PO BID 90 days 180 tabs 0RF To glipizide 10 mg PO BID 90 days 180 tabs 0RF Coding Level of Care Code Est Pt Level 4 (20132) Diagnoses Hypertension, essential I10 Diabetes 1.5, managed as type 2 E13.9 Lipid disorder E78.9 Class 1 obesity due to excess calories with serious comorbidity and body mass index (BMI) of 33.0 to 33.9 in adult E66.09; Z68.33 Body mass index: BMI 33.0-33.9 Obesity classification: adult class 1 (BMI 30 - 34.9) Serious obesity comorbidity presence: with serious comorbidity Microalbuminuria R80.9 LFT elevation R79.89 Idiopathic chronic gout without tophus, unspecified site M1A.00X0 Gout site: unspecified site Gout etiology: idiopathic Chronicity: chronic Presence of tophus: without tophus Additional Codes COLT-7 Assessment Billing - COLT-7 Assessment Tool: COLT-7 Assessment [id number] ([id number])
== END 2024-04-06 09:35 | disposition home or self-care (01) ==
PROVIDERS: PCP Internal Medicine; Visit Provider Internal Medicine
DX: I10 Essential (primary) hypertension (principal); E13.9 Other specified diabetes mellitus without complications; E78.9 Disorder of lipoprotein metabolism, unspecified; Z68.33 Body mass index [BMI] 33.0-33.9, adult; E66.09 Other obesity due to excess calories; R80.9 Proteinuria, unspecified; R79.89 Other specified abnormal findings of blood chemistry; M1A.00X0 Idiopathic chronic gout, unspecified site, without tophus (tophi)
CPT/HCPCS: 99214

== ENCOUNTER 2024-07-12 06:32 | Outpatient (REF) | payer BC, SELFPAY ==
[2024-07-12 09:50] LABS: MANUAL DIFF FLAG NO
[2024-07-12 10:04] LABS: Basophils Absolute Auto 0.1 X10*3/uL (0.0-0.2); Basophils Percent Auto 0.4 % (0-2); Eosinophils Percent Auto 0.2 % (0-4); Hematocrit 47.3 % (42.0-52.0); Hemoglobin 16.2 g/dl (14.0-18.0); Imm Gran Abs Auto 0.07 X10*3/uL (0.00-0.03); Imm Gran Pct Auto 0.5 % (0.0-0.4); Mean Corpuscular HGB Conc 34.2 g/dl (31.0-36.0); Mean Corpuscular Hemoglobin 28.9 pg (27.0-33.0); Mean Corpuscular Volume 84.3 fL (80.0-98.0); Mean Platelet Volume 10.8 fL (9.4-12.4); Monocytes Absolute Auto 0.8 X10*3/uL (0.1-1.2); Monocytes Percent Auto 5.7 % (2-11); Neutrophils Absolute Auto 11.4 x10*3/uL (2.0-8.3); Neutrophils Percent Auto 79.2 % (45-73); Platelet Count 233 X10*3/uL (160-400); Red Blood Count 5.61 X10*6/uL (4.60-5.80); Red Cell Distribution Width 13.4 % (11.0-16.0); White Blood Count 14.5 X10*3/uL (4.8-10.8)
[2024-07-12 10:15] LABS: Alanine Aminotransferase 56 U/L (0-40); Albumin Level 4.8 g/dL (3.5-5.0); Alkaline Phosphatase 49 U/L (39-117); Anion Gap 14 (12-20); Aspartate Amino Transferase 44 U/L (5-37); Bilirubin Total 0.8 mg/dL (0.0-1.0); Blood Urea Nitrogen 15 mg/dL (9-16); Calcium 10.2 mg/dL (8.4-10.2); Carbon Dioxide 27 mmol/L (22-29); Chloride 100 mmol/L (96-108); Cholesterol 175 mg/dL (<200); Estimated Glomerular Filt Rate > 60; Glucose Fasting 162 mg/dL (60-99); HDL Cholesterol 60 mg/dL (>40); LDL Cholesterol Calculated 88 mg/dL (<100); Potassium 3.7 mmol/L (3.3-5.1); Sodium 137 mmol/L (135-145); Total Protein 7.8 g/dL (6.5-8.0); Triglycerides 139 mg/dL (<150)
[2024-07-12 10:22] LABS: Estimated Average Glucose 183 mg/dL; Hemoglobin A1C 243.3396 umol/L; Total Hemoglobin (HGBA1C) 3822.2284 umol/L
== END 2024-07-12 06:33 | disposition home or self-care (01) ==
LOC: HO.HMGCLDS 06:32
PROVIDERS: PCP Internal Medicine; Visit Provider Internal Medicine
DX: I10 Essential (primary) hypertension (principal); E13.9 Other specified diabetes mellitus without complications; E78.9 Disorder of lipoprotein metabolism, unspecified; E66.09 Other obesity due to excess calories; Z68.33 Body mass index [BMI] 33.0-33.9, adult; R80.9 Proteinuria, unspecified
CPT/HCPCS: 36415; 80053; 80061; 83036; 85025

== ENCOUNTER 2024-08-10 09:07 | Outpatient (AMB) | payer BC, SELFPAY ==
--- NOTE | 2024-08-10 09:11 | A.OFFPC_ITS ---
Vital Signs 08/10/24 09:12 Height 5 ft 3 in Weight 187 lb 7 oz BMI 33.2 BP 112/78 Blood Pressure Location Rt brachial Position Sitting Pulse 86 Pulse Source Pulse Oximeter Pulse Oximetry (%) 96 Oxygen Delivery Method Room Air Intake Visit Reasons: Annual Physical Allergies No Known Allergies [No Known Allergies*] Allergy (Verified 08/10/24 09:14) Medication List - Last Reconciled 08/10/24 by Abdelrahman Clayton MD allopurinol 300 mg PO DAILY atorvastatin 20 mg PO DAILY 90 days glipizide 10 mg PO BID 90 days lisinopril 20 mg PO DAILY 90 days metformin 1,000 mg PO BID pioglitazone 15 mg PO DAILY Tobacco use date assessed: 08/10/24 Dental Screening Dental Screen Date: 08/10/24 Did you have a dental visit in the last 12 months?: Yes Did you have a dental problem in the last 6 months where you did not have access to dental care?: No Was dental information given to patient?: Patient has dentist HPI Annual Physical HPI Details Physical exam appointment - The patient is a 43-year-old male pres enting with a persistent cough and Type 2 Diabetes Mellitus. - Chronic cough started approximately tw o to three weeks ago, around the start of . It is described as dry, with the frequency reducing over time. - Initially managed with NyQuil, the pat ient is now advised to take Delsum, a more suitable medication for a dry cough. - Type 2 Diabetes Mellitus is being greta ged with an A1c of 8.0, above the desired level. Current medication regimen includes metformin, pioglitazone, and glipizide for glycemic control. Health Maintenance - Review and management of HbA1c level o f 8.0, aiming for a target of 7. Medications - Allopurinol for Gout (currently asympt omatic) - Atorvastatin 20 mg for cholesterol man agement - Glipizide 10 mg taken twice daily for Type 2 Diabetes Mellitus - Lisinopril for hypertension management - Metformin 1 g taken twice daily for Ty pe 2 Diabetes Mellitus - Pioglitazone 15 mg for Type 2 Diabetes Mellitus Diagnostic results - Labs: - Hemoglobin A1c: 8.0 (July) Review of Systems - Respiratory: Reports persistent dry co ugh; denies shortness of breath. - General: No fever no chills - Neurological: No headaches no dizzin ess - Ear nose throat: No sore throat no hearing difficulty no ear pain - Cardiovascular: No syncope, no chest pain, no palpitations - Gastrointestinal: No nausea vomiting or diarrhea - Endocrine: No polyuria polydipsia no heat intolerance - Genitourinary: No dysuria - Skin: No new complaints Physical Exam General: Cooperative, healthy appearing, comfortable, no acute distress Orientation: Patient oriented x3 Limitations: None Head: Normal to inspection Ears: Within normal limit visually Nose: Normal external nose present Face and sinus: Normal facial exam Eyes: Appearance normal, extraocular movement intact pupils reactive Neck: Normal visual inspection and supple Respiratory: Normal respiratory effort and able to speak in complete sentences. Clear to auscultation, no stridor, no wheezing Cardiovascular: S1 and S2 GI: Normal to inspection. Soft to palpation and nontender Skin: Turgor normal, no acute findings, no skin problems Neuro: Patient oriented x3, motor sensory intact, balance intact, tandem pass Extremities: Normal to inspection, knees are okay, no pain in back Patient Instructions - Switch to Delsum cough syrup, taking o ne teaspoon in the morning and one at night. - Continue current medications for diabe meir and hypertension. For now, once done with 15 mg of pioglitazone start 45 mg, script sent - Monitor blood sugar levels regularly. - Follow up for blood sugar check during next office visit. Follow-up 3-1/2 months Physical exam 1 year [facility] Medical History Lipid disorder Diabetes 1.5, managed as type 2 Hypertension, essential Gout Family History Maternal Grandmother Diabetes mellitus Social History Housing: House Alcohol intake: current Alcohol intake frequency: holidays/special occasions only Patient Tobacco Use Status: Never used Tobacco e-Cigarette/Vaping Use: Never Used service: No Current occupational status: employed Current occupation: [employer] Cognitive needs: No Hearing needs: No Vision needs: Yes Questionnaire PHQ-9 Over the last 2 weeks, how often have you been bothered by any of the following problems? 1. Little interest or pleasure in doing things: not at all 2. Feeling down, depressed, or hopeless: not at all 3. Trouble falling or staying asleep, or sleeping too much: not at all 4. Feeling tired or having little energy: not at all 5. Poor appetite or overeating: not at all 6. Feeling bad about yourself - or that you are a failure or have let yourself or your family down: not at all 7. Trouble concentrating on things, such as reading the newspaper or watching television: not at all 8. Moving or speaking so slowly that other people could have noticed. Or the opposite - being so fidgety or restless that you have been moving around a lot more than usual: not at all 9. Thoughts that you would be better off or of hurting yourself in some way: not at all Total score: 0 Depression Screening Interpretation: Negative Depression Screening Done: Yes 21850 - PHQ-9 Billing: Yes Source: Developed by Drs. Antoine June, Susan Phillips, Tico Plummer and colleagues, with an educational meliza from [employer]. Thrive Questionnaire Date Thrive assessed: 08/10/24 I am a: Patient What is your living situation today?: I have a steady place to live Within the past 12 months, did the food you bought not last and you didn't have the money to get more?: Never true Within the past 12 months, did you worry whether your food would run out before you got money to buy more?: Never true Do you have trouble paying for medicines?: No Do you have trouble getting transportation to medical appointments?: No Do you have trouble paying your heating and electricity bill?: No Do you have trouble taking care of your child, family member or friend?: No Do you have trouble with day-to-day activities such as bathing, preparing meals, shopping, managing finances, etc.?: No Are you currently unemployed and looking for a job?: No Are you interested in more education?: No Please select the resources that you would like help with: None Currently or been in a relationship where the following occur: No concerns reported THRIVE Score: 0 AUDIT C Alcohol Use Questionnaire (AUDIT-C) 1. How often do you have a drink containing alcohol?: Monthly or less 2. How many drinks containing alcohol do you have on a typical day when you are drinking?: 1 or 2 3. How often do you have six or more drinks on one occasion?: Never Total Score: 1 Score Reviewed/Action Taken: Yes COLT-7 AMB Questionnaire COLT-7 Date COLT - 7 assessed: 08/10/24 Feeling nervous, anxious, or on edge: 0 = Not at all Not being able to stop or control worryin = Not at all Worrying too much about different things: 0 = Not at all Trouble relaxin = Not at all Being so restless that it is hard to sit still: 0 = Not at all Becoming easily annoyed or irritable: 0 = Not at all Feeling afraid as if something awful might happen: 0 = Not at all Total COLT-7 score (0-4 normal; 5-9 mild; 10-14 moderate; 15-21 severe): 0 Source: Developed by Drs. Antoine June, Susan Phillips, Tico Plummer and colleagues, with an educational meliza from [employer]. COLT-7 Assessment Billing COLT-7 Assessment Tool: COLT-7 Assessment 79004 Physical exam (Primary Care) Vital Signs: Last Vital Signs Pulse 86 08/10/24 09:12 BP 112/78 08/10/24 09:12 Pulse Ox 96 08/10/24 09:12 Oxygen Delivery Method Room Air 08/10/24 09:12 BMI result Body Mass Index 33.2 Tobacco/Smoking Status: Tobacco use Status Tobacco use date assessed 08/10/24 08/10/24 09:15 Patient Tobacco Use Status Never used Tobacco 08/10/24 09:15 e-Cigarette/Vaping Use Never Used 08/10/24 09:15 PHQ-9: PHQ-9 Score PHQ-9: Total score 0 08/10/24 09:15 Depression Screening Interpretation: Negative Thrive Assessment: Date of Thrive Assessment Date Thrive assessed 08/10/24 08/10/24 09:15 Currently or been in a relationship where the following occur: No concerns reported Coding Level of Care Code Est Pt Level 3 (62137) Est Pt Prev Care 40-64y(95296) Diagnoses Encounter for general adult medical examination with abnormal findings Z00.01 Diabetes mellitus type 2 in obese E11.69; E66.9 LFT elevation R79.89 Class 1 obesity due to excess calories with serious comorbidity and body mass index (BMI) of 33.0 to 33.9 in adult E66.09; Z68.33 Obesity classification: adult class 1 (BMI 30 - 34.9) Serious obesity comorbidity presence: with serious comorbidity Body mass index: BMI 33.0-33.9 Microalbuminuria R80.9 Hypertension, essential I10 Idiopathic chronic gout without tophus, unspecified site [id number] Gout site: unspecified site Gout etiology: idiopathic Chronicity: chronic Presence of tophus: without tophus Additional Codes COLT-7 Assessment Billing - COLT-7 Assessment Tool: COLT-7 Assessment 83054 ([id number]) PHQ-9 - 73774 - PHQ-9 Billing: Yes ([id number]) Assessment & Plan Assessment & Plan (1) Encounter for general adult medical examination with abnormal findings: Code(s): Z00.01 - Encounter for general adult medical examination with abnormal findings Category: Medical (2) Diabetes mellitus type 2 in obese: Code(s): E11.69 - Type 2 diabetes mellitus with other specified complication; E66.9 - Obesity, unspecified Category: Medical (3) LFT elevation: Code(s): R79.89 - Other specified abnormal findings of blood chemistry Category: Medical (4) Obesity due to excess calories: Code(s): E66.09 - Other obesity due to excess calories Category: Medical Qualifiers: Obesity classification: adult class 1 (BMI 30 - 34.9) Serious obesity comorbidity presence: with serious comorbidity Body mass index: BMI 33.0-33.9 Qualified Code(s): E66.09 - Other obesity due to excess calories; Z68.33 - Body mass index [BMI] 33.0-33.9, adult (5) Microalbuminuria: Code(s): R80.9 - Proteinuria, unspecified Category: Medical (6) Hypertension, essential: Code(s): I10 - Essential (primary) hypertension Category: Medical (7) Gout: Code(s): M10.9 - Gout, unspecified Category: Medical Qualifiers: Gout site: unspecified site Gout etiology: idiopathic Chronicity: chronic Presence of tophus: without tophus Qualified Code(s): [id number].[id number] - Idiopathic chronic gout, unspecified site, without tophus (tophi) Plan Physical exam appointment - The patient is a 43-year-old male presenting with a persistent cough and Type 2 Diabetes Mellitus. - Chronic cough started approximately two to three weeks ago, around the start of . It is described as dry, with the frequency reducing over time. - Initially managed with NyQuil, the patient is now advised to take Delsum, a more suitable medication for a dry cough. - Type 2 Diabetes Mellitus is being managed with an A1c of 8.0, above the desired level. Current medication regimen includes metformin, pioglitazone, and glipizide for glycemic control. Health Maintenance - Review and management of HbA1c level of 8.0, aiming for a target of 7. Medications - Allopurinol for Gout (currently asymptomatic) - Atorvastatin 20 mg for cholesterol management - Glipizide 10 mg taken twice daily for Type 2 Diabetes Mellitus - Lisinopril for hypertension management - Metformin 1 g taken twice daily for Type 2 Diabetes Mellitus - Pioglitazone 15 mg for Type 2 Diabetes Mellitus Diagnostic results - Labs: - Hemoglobin A1c: 8.0 (July) Review of Systems - Respiratory: Reports persistent dry cough; denies shortness of breath. - General: No fever no chills - Neurological: No headaches no dizziness - Ear nose throat: No sore throat no hearing difficulty no ear pain - Cardiovascular: No syncope, no chest pain, no palpitations - Gastrointestinal: No nausea vomiting or diarrhea - Endocrine: No polyuria polydipsia no heat intolerance - Genitourinary: No dysuria - Skin: No new complaints Physical Exam General: Cooperative, healthy appearing, comfortable, no acute distress Orientation: Patient oriented x3 Limitations: None Head: Normal to inspection Ears: Within normal limit visually Nose: Normal external nose present Face and sinus: Normal facial exam Eyes: Appearance normal, extraocular movement intact pupils reactive Neck: Normal visual inspection and supple Respiratory: Normal respiratory effort and able to speak in complete sentences. Clear to auscultation, no stridor, no wheezing Cardiovascular: S1 and S2 GI: Normal to inspection. Soft to palpation and nontender Skin: Turgor normal, no acute findings, no skin problems Neuro: Patient oriented x3, motor sensory intact, balance intact, tandem pass Extremities: Normal to inspection, knees are okay, no pain in back Patient Instructions - Switch to Delsum cough syrup, taking one teaspoon in the morning and one at night. - Continue current medications for diabetes and hypertension. For now, once done with 15 mg of pioglitazone start 45 mg, script sent - Monitor blood sugar levels regularly. - Follow up for blood sugar check during next office visit. Follow-up 3-1/2 months Physical exam 1 year Medications: Changed From pioglitazone 15 mg PO DAILY 90 tabs 0RF To pioglitazone 45 mg PO DAILY 90 tabs 1RF
[2024-08-10 09:12] VITALS: BP 112/78; PULSE 86; O2SAT 96; BMI 33.2
== END 2024-08-10 09:29 | disposition home or self-care (01) ==
PROVIDERS: PCP Internal Medicine; Visit Provider Internal Medicine
DX: Z00.00 Encounter for general adult medical examination without abnormal findings (principal); E11.69 Type 2 diabetes mellitus with other specified complication; E66.9 Obesity, unspecified; Z68.33 Body mass index [BMI] 33.0-33.9, adult; R79.89 Other specified abnormal findings of blood chemistry; E66.09 Other obesity due to excess calories; R80.9 Proteinuria, unspecified; I10 Essential (primary) hypertension; M1A.00X0 Idiopathic chronic gout, unspecified site, without tophus (tophi)

== ENCOUNTER → 2024-08-10 09:07 | Outpatient (BNVA) | payer BC, SELFPAY | PROVIDERS: PCP Internal Medicine; Visit Provider Internal Medicine | DX: Z00.01 Encounter for general adult medical examination with abnormal findings (principal); E11.69 Type 2 diabetes mellitus with other specified complication; E66.09 Other obesity due to excess calories; Z68.33 Body mass index [BMI] 33.0-33.9, adult; R79.89 Other specified abnormal findings of blood chemistry; R80.9 Proteinuria, unspecified; I10 Essential (primary) hypertension; M1A.00X0 Idiopathic chronic gout, unspecified site, without tophus (tophi); Z79.84 Long term (current) use of oral hypoglycemic drugs; Z79.899 Other long term (current) drug therapy | CPT/HCPCS: 96127 ==

== ENCOUNTER 2024-11-20 08:15 | Outpatient (AMB) | payer BC, SELFPAY ==
[2024-11-20 08:22] VITALS: BP 130/84; PULSE 105; RESP 16; TEMP 36.8; O2SAT 96; BMI 35.1
--- NOTE | 2024-11-20 08:22 | A.OFFPC_ITS ---
Vital Signs 11/20/24 08:22 Height 5 ft 3 in Weight 198 lb BMI 35.1 BP 130/84 Blood Pressure Location Lt brachial Position Sitting Respiration 16 Pulse 105 H Pulse Source Pulse Oximeter Temp 98.2 F Temp Source Oral Pulse Oximetry (%) 96 Oxygen Delivery Method Room Air Intake Visit Reasons: 3.5 month follow up Allergies No Known Allergies [No Known Allergies*] Allergy (Verified 08/10/24 09:14) Medication List - Last Reconciled 11/20/24 by Abdelrahman Clayton MD allopurinol 300 mg PO DAILY atorvastatin 20 mg PO DAILY 90 days glipizide 10 mg PO BID 90 days lisinopril 20 mg PO DAILY 90 days metformin 1,000 mg PO BID pioglitazone 45 mg PO DAILY Tobacco use date assessed: 11/20/24 Dental Screening Dental Screen Date: 11/20/24 Did you have a dental visit in the last 12 months?: Yes Did you have a dental problem in the last 6 months where you did not have access to dental care?: Yes Was dental information given to patient?: Patient has dentist HPI 3.5 month follow up HPI Details History - The patient is a 43-year-old male pres enting for follow-up evaluation for Type 2 Diabetes Mellitus and associated conditions. - Diabetes Mellitus: Recent lab results indicate that the patient's A1c has improved, decreasing from 8 in July to 7.6. The patient notes improvement in blood sugar control compared to previous visits. - Hypertension: in-office measurement at 130/84 mmHg, increased from 112 systolic in August. The patient was instructed on importance of home monitoring with an appropriate device. - Weight Management: The patient reports a significant weight gain from 187.7 pounds in August to 198 pounds now. No lifestyle changes reported, other than living alone which affects dietary habits. - Gout: No acute episodes of gout or rel evant symptoms have been reported recently. - General Lifestyle: The patient has bee n managing diabetes with medication adherence; however, weight gain and changes in blood pressure warrant attention. Problem List - Type 2 Diabetes Mellitus - Hyperlipidemia - Essential Hypertension - Gout - obesity Patient Instructions - Take medications as prescribed. - Monitor blood pressure regularly at [facility] and report any significant changes. - Aim to lose weight over the next three months to help manage blood pressure and improve overall health. - Be cautious about skin injuries or scr atches, as you have diabetes, and monitor healing. - Return for lab work in three months, a nd ensure the appointment is scheduled. - Seek care sooner if any unusual sympto ms or concerns arise. f/u 3.5 M, labs to be done before visit order placed Review of Systems - General: No fever no chills - Neurological: No headaches no dizziness - Ear nose throat: No sore throat no hearing difficulty no ear pain - Cardiovascular: No syncope, no chest pain, no palpitations - Gastrointestinal: No nausea vomiting or diarrhea - Endocrine: No polyuria polydipsia no heat intolerance - Genitourinary: No dysuria , no blood in urine Physical Exam General: No acute distress HEENT: No acute findings Neck: Supple Respiratory system: Able to talk in full sentences, no audible wheeze Cardiovascular: S1-S2 regular in rate and rhythm Gastrointestinal: No pain Extremities: No new findings, no swelling of ankles 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 x3 motor sensory intact Skin: Normal turgor, be careful about scratches due to diabetes [facility] Medical History Lipid disorder Diabetes 1.5, managed as type 2 Hypertension, essential Gout Family History Maternal Grandmother Diabetes mellitus Social History Housing: House Alcohol intake: current Alcohol intake frequency: holidays/special occasions only Patient Tobacco Use Status: Never used Tobacco e-Cigarette/Vaping Use: Never Used service: No Current occupational status: employed Current occupation: [employer] Cognitive needs: No Hearing needs: No Vision needs: Yes Questionnaire Thrive Questionnaire Date Thrive assessed: 08/10/24 I am a: Patient What is your living situation today?: I have a steady place to live Within the past 12 months, did the food you bought not last and you didn't have the money to get more?: Never true Within the past 12 months, did you worry whether your food would run out before you got money to buy more?: Never true Do you have trouble paying for medicines?: No Do you have trouble getting transportation to medical appointments?: No Do you have trouble paying your heating and electricity bill?: No Do you have trouble taking care of your child, family member or friend?: No Do you have trouble with day-to-day activities such as bathing, preparing meals, shopping, managing finances, etc.?: No Are you currently unemployed and looking for a job?: No Are you interested in more education?: No Please select the resources that you would like help with: None Currently or been in a relationship where the following occur: No concerns reported THRIVE Score: 0 COLT-7 AMB Questionnaire COLT-7 Date COLT - 7 assessed: 08/10/24 Source: Developed by Drs. Antoine June, Susan Phillips, Tico Plummer and colleagues, with an educational meliza from [employer]. Physical exam (Primary Care) Vital Signs: Last Vital Signs Temp 98.2 F 11/20/24 08:22 Pulse 105 H 11/20/24 08:22 Resp 16 11/20/24 08:22 BP 130/84 11/20/24 08:22 Pulse Ox 96 11/20/24 08:22 Oxygen Delivery Method Room Air 11/20/24 08:22 BMI result Body Mass Index 35.1 Tobacco/Smoking Status: Tobacco use Status Tobacco use date assessed 11/20/24 11/20/24 08:23 Patient Tobacco Use Status Never used Tobacco 11/20/24 08:23 e-Cigarette/Vaping Use Never Used 11/20/24 08:23 Thrive Assessment: Date of Thrive Assessment Date Thrive assessed 08/10/24 11/20/24 08:23 Currently or been in a relationship where the following occur: No concerns reported Results AMB Hemoglobin A1c AMB Hemoglobin A1c 7.6 % Last Edit by Zeenat Chow CMA on 11/20/24 08:37 Results Reviewed Results Reviewed: Laboratory Last Values Hgb A1c (Clinic) 7.6 % (4.0-6.0) H 11/20/24 08:26 Coding Level of Care Code Est Pt Level 4 (28404) Diagnoses Diabetes 1.5, managed as type 2 E13.9 Hypertension, essential I10 Idiopathic chronic gout without tophus, unspecified site [id number].[id number] Gout site: unspecified site Gout etiology: idiopathic Chronicity: chronic Presence of tophus: without tophus Lipid disorder E78.9 Class 1 obesity due to excess calories with serious comorbidity and body mass index (BMI) of 33.0 to 33.9 in adult E66.09; Z68.33 Obesity classification: adult class 1 (BMI 30 - 34.9) Serious obesity comorbidity presence: with serious comorbidity Body mass index: BMI 33.0-33.9 LFT elevation R79.89 Microalbuminuria R80.9 Assessment & Plan Assessment & Plan (1) Diabetes 1.5, managed as type 2: Code(s): E13.9 - Other specified diabetes mellitus without complications Category: Medical (2) Hypertension, essential: Code(s): I10 - Essential (primary) hypertension Category: Medical (3) Gout: Code(s): M10.9 - Gout, unspecified Category: Medical Qualifiers: Gout site: unspecified site Gout etiology: idiopathic Chronicity: chronic Presence of tophus: without tophus Qualified Code(s): M1A.00X0 - Idiopathic chronic gout, unspecified site, without tophus (tophi) (4) Lipid disorder: Code(s): E78.9 - Disorder of lipoprotein metabolism, unspecified Category: Medical (5) Obesity due to excess calories: Code(s): E66.09 - Other obesity due to excess calories Category: Medical Qualifiers: Obesity classification: adult class 1 (BMI 30 - 34.9) Serious obesity comorbidity presence: with serious comorbidity Body mass index: BMI 33.0-33.9 Qualified Code(s): E66.09 - Other obesity due to excess calories; Z68.33 - Body mass index [BMI] 33.0-33.9, adult (6) LFT elevation: Code(s): R79.89 - Other specified abnormal findings of blood chemistry Category: Medical (7) Microalbuminuria: Code(s): R80.9 - Proteinuria, unspecified Category: Medical Plan History - The patient is a 43-year-old male presenting for follow-up evaluation for Type 2 Diabetes Mellitus and associated conditions. has H/o microalbuminurea, and high LFT - Diabetes Mellitus: Recent lab results indicate that the patient's A1c has improved, decreasing from 8 in July to 7.6. The patient notes improvement in blood sugar control compared to previous visits. - Hypertension: in-office measurement at 130/84 mmHg, increased from 112 systolic in August. The patient was instructed on importance of home monitoring with an appropriate device. - Weight Management: The patient reports a significant weight gain from 187.7 pounds in August to 198 pounds now. No lifestyle changes reported, other than living alone which affects dietary habits. - Gout: No acute episodes of gout or relevant symptoms have been reported recently. - General Lifestyle: The patient has been managing diabetes with medication adherence; however, weight gain and changes in blood pressure warrant attention. Problem List - Type 2 Diabetes Mellitus - Hyperlipidemia - Essential Hypertension - Gout - obesity Patient Instructions - Take medications as prescribed. - Monitor blood pressure regularly at home and report any significant changes. - Aim to lose weight over the next three months to help manage blood pressure and improve overall health. - Be cautious about skin injuries or scratches, as you have diabetes, and monito r healing. - Return for lab work in three months, and ensure the appointment is scheduled. - Seek care sooner if any unusual symptoms or concerns arise. f/u 3.5 M, labs to be done before visit order placed Orders: Orders AMB Hemoglobin A1c Today E11.69 - Type 2 diabetes mellitus with other specified complication, E66.9 - Obesity, unspecified Lipid Panel 3 Months E13.9 - Other specified diabetes mellitus without complications, E66.09 - Other obesity due to excess calories, E78.9 - Disorder of lipoprotein metabolism, unspecified, I10 - Essential (primary) hypertension, M1A.00X0 - Idiopathic chronic gout, unspecified site, without tophus (tophi), R79.89 - Other specified abnormal findings of blood chemistry, R80.9 - Proteinuria, unspecified, Z68.33 - Body mass index [BMI] 33.0-33.9, adult Hemoglobin A1c 3 Months E13.9 - Other specified diabetes mellitus without complications, E66.09 - Other obesity due to excess calories, E78.9 - Disorder of lipoprotein metabolism, unspecified, I10 - Essential (primary) hypertension, M1A.00X0 - Idiopathic chronic gout, unspecified site, without tophus (tophi), R79.89 - Other specified abnormal findings of blood chemistry, R80.9 - Proteinuria, unspecified, Z68.33 - Body mass index [BMI] 33.0-33.9, adult Complete Blood Count Auto Diff 3 Months E13.9 - Other specified diabetes mellitus without complications, E66.09 - Other obesity due to excess calories, E78.9 - Disorder of lipoprotein metabolism, unspecified, I10 - Essential (primary) hypertension, M1A.00X0 - Idiopathic chronic gout, unspecified site, without tophus (tophi), R79.89 - Other specified abnormal findings of blood chemistry, R80.9 - Proteinuria, unspecified, Z68.33 - Body mass index [BMI] 33.0-33.9, adult Comprehensive [place]. Panel Fast 3 Months E13.9 - Other specified diabetes mellitus without complications, E66.09 - Other obesity due to excess calories, E78.9 - Disorder of lipoprotein metabolism, unspecified, I10 - Essential (primary) hypertension, M1A.00X0 - Idiopathic chronic gout, unspecified site, without tophus (tophi), R79.89 - Other specified abnormal findings of blood chemistry, R80.9 - Proteinuria, unspecified, Z68.33 - Body mass index [BMI] 33.0-33.9, adult Microalbumin, Random (w Creat) 3 Months E13.9 - Other specified diabetes mellitus without complications, E66.09 - Other obesity due to excess calories, E78.9 - Disorder of lipoprotein metabolism, unspecified, I10 - Essential (primary) hypertension, M1A.00X0 - Idiopathic chronic gout, unspecified site, without tophus (tophi), R79.89 - Other specified abnormal findings of blood chemistry, R80.9 - Proteinuria, unspecified, Z68.33 - Body mass index [BMI] 33.0-33.9, adult Uric Acid 3 Months E13.9 - Other specified diabetes mellitus without complications, E66.09 - Other obesity due to excess calories, E78.9 - Disorder of lipoprotein metabolism, unspecified, I10 - Essential (primary) hypertension, M1A.00X0 - Idiopathic chronic gout, unspecified site, without tophus (tophi), R79.89 - Other specified abnormal findings of blood chemistry, R80.9 - Proteinuria, unspecified, Z68.33 - Body mass index [BMI] 33.0-33.9, adult
== END 2024-11-20 08:41 | disposition home or self-care (01) ==
LOC: HO.HMCC 08:16
PROVIDERS: PCP Internal Medicine; Visit Provider Internal Medicine
DX: E13.9 Other specified diabetes mellitus without complications (principal); I10 Essential (primary) hypertension; M1A.00X0 Idiopathic chronic gout, unspecified site, without tophus (tophi); E78.9 Disorder of lipoprotein metabolism, unspecified; E66.09 Other obesity due to excess calories; Z68.33 Body mass index [BMI] 33.0-33.9, adult; R79.89 Other specified abnormal findings of blood chemistry; R80.9 Proteinuria, unspecified; E11.69 Type 2 diabetes mellitus with other specified complication; E66.9 Obesity, unspecified

== ENCOUNTER → 2024-11-20 08:15 | Outpatient (BNVA) | payer BC, SELFPAY | PROVIDERS: PCP Internal Medicine; Visit Provider Internal Medicine | DX: E13.9 Other specified diabetes mellitus without complications (principal); I10 Essential (primary) hypertension; M1A.00X0 Idiopathic chronic gout, unspecified site, without tophus (tophi); E78.9 Disorder of lipoprotein metabolism, unspecified; E66.09 Other obesity due to excess calories; Z68.33 Body mass index [BMI] 33.0-33.9, adult; R79.89 Other specified abnormal findings of blood chemistry; R80.9 Proteinuria, unspecified | CPT/HCPCS: 83036 ==

== ENCOUNTER 2025-03-06 07:31 | Outpatient (REF) | payer BC, SELFPAY ==
[2025-03-06 10:07] LABS: MANUAL DIFF FLAG NO
[2025-03-06 10:17] LABS: Hematocrit 48.8 % (42.0-52.0); Hemoglobin 16.4 g/dl (14.0-18.0); Imm Gran Abs Auto 0.01 X10*3/uL (0.00-0.03); Imm Gran Pct Auto 0.2 % (0.0-0.4); Lymphocytes Absolute Auto 2.3 X10*3/uL (1.2-4.9); Mean Corpuscular HGB Conc 33.6 g/dl (31.0-36.0); Mean Corpuscular Hemoglobin 28.8 pg (27.0-33.0); Mean Corpuscular Volume 85.6 fL (80.0-98.0); NRBC Abs Auto 0.000 X10*3/uL (0.0-0.012); NRBC Pct Auto 0.0 /100WBC (0.0-0.2); Platelet Count 233 X10*3/uL (160-400); Red Blood Count 5.70 X10*6/uL (4.60-5.80); White Blood Count 6.0 X10*3/uL (4.8-10.8)
[2025-03-06 10:38] LABS: Hemoglobin A1C 301.1354 umol/L; Total Hemoglobin (HGBA1C) 4238.7552 umol/L
[2025-03-06 10:41] LABS: Albumin Level 4.9 g/dL (3.5-5.0); Alkaline Phosphatase 54 U/L (39-117); Anion Gap 15 (12-20); Aspartate Amino Transferase 54 U/L (5-37); Blood Urea Nitrogen 11 mg/dL (9-16); Calcium 9.3 mg/dL (8.4-10.2); Carbon Dioxide 26 mmol/L (22-29); Chloride 104 mmol/L (96-108); Cholesterol 182 mg/dL (<200); Estimated Glomerular Filt Rate > 60; HDL Cholesterol 57 mg/dL (>40); Potassium 3.9 mmol/L (3.3-5.1); Sodium 141 mmol/L (135-145); Total Protein 7.7 g/dL (6.5-8.0); Triglycerides 145 mg/dL (<150); Uric Acid 7.4 mg/dL (3.4-7.0)
[2025-03-06 10:53] LABS: Alanine Aminotransferase 66 U/L (0-40)
[2025-03-06 11:27] LABS: Microalbum/Creatinine Ratio Ur 35.9 ug/mg cr (<30)
== END 2025-03-06 07:32 | disposition home or self-care (01) ==
LOC: HO.HMGCLDS 07:31
PROVIDERS: PCP Internal Medicine; Visit Provider Internal Medicine
DX: I10 Essential (primary) hypertension (principal); M1A.00X0 Idiopathic chronic gout, unspecified site, without tophus (tophi); E13.9 Other specified diabetes mellitus without complications; E66.09 Other obesity due to excess calories; R79.89 Other specified abnormal findings of blood chemistry; E78.9 Disorder of lipoprotein metabolism, unspecified; R80.9 Proteinuria, unspecified; Z68.33 Body mass index [BMI] 33.0-33.9, adult
CPT/HCPCS: 36415; 80053; 80061; 82043; 82570; 83036; 84550; 85025

== ENCOUNTER 2025-03-08 07:53 | Outpatient (AMB) | payer BC, SELFPAY ==
[2025-03-08 08:06] VITALS: BP 120/80; PULSE 87; RESP 18; TEMP 37.3; O2SAT 95; BMI 35.1
--- NOTE | 2025-03-08 08:06 | A.OFFPC_ITS ---
Vital Signs 03/08/25 08:06 Height 5 ft 3 in Weight 198 lb BMI 35.1 BP 120/80 Blood Pressure Location Rt brachial Position Sitting Respiration 18 Pulse 87 Pulse Source Pulse Oximeter Temp 99.1 F Temp Source Oral Pulse Oximetry (%) 95 Oxygen Delivery Method Room Air Intake Visit Reasons: 3.5 month follow up Allergies No Known Allergies (No Known Allergies*) Allergy (Verified 03/08/25 08:10) Medication List - Last Reconciled 03/08/25 by Abdelrahman Clayton MD allopurinol 300 mg PO DAILY atorvastatin 20 mg PO DAILY 90 days glipizide 10 mg PO BID 90 days lisinopril 20 mg PO DAILY 90 days metformin 1,000 mg PO BID pioglitazone 45 mg PO DAILY Tobacco use date assessed: 03/08/25 Dental Screening Dental Screen Date: 11/20/24 HPI 3.5 month follow up HPI Details Chief Complaint The patient presents for a follow-up to manage elevated blood glucose levels and liver function concerns. History of Present Illness The patient is a 44-year-old male presenting with concerns related to type 2 diabetes management and liver enzyme elevations. Type 2 Diabetes Mellitus: - The patient reports an increase in blo od sugar levels, with a recent HbA1c level of 8.7%, up from 7.6% in October. - The patient attributes the increase to higher consumption of Gatorade due to hot working conditions. - Currently on multiple oral antidiabeti c medications. - Denies chest pains, shortness of breat h, or swelling of ankles. - Has been informed that continued poor control may lead to more severe interventions, including possible transition to injectable medication if needed. Elevated Liver Enzymes: - The patient has noticed worsening live r enzyme tests, suspected due to fatty liver disease. - There is a concern for potential ongoi ng liver-related complications if not addressed. 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 - Reports high Gatorade consumption at w ork due to hot conditions. - Reports no issues coordinating medicat ion adherence with third shift work. Diagnostic Results: - Labs: Recent HbA1c 8.7%; CBC within no rmal limits; Electrolytes normal; Elevated liver enzymes. Problem List - Type 2 Diabetes Mellitus - Elevated Liver Enzymes - Gout - Hyperlipidemia - HTN - obesity Patient Instructions - Adjust your diet to help control blood sugar levels. - Bring your own low-sugar drinks and fo od to work to prevent blood sugar spikes. - Monitor sugar levels regularly as inst ructed. - Consider the dietary impacts on your [facility]. - Review medication administration guide lines if injectable medication becomes necessary. - Follow up for routine HbA1c and liver testing in three months. Review of Systems - General: No fever no chills - Neurological: No headaches no dizziness - Ear nose throat: No sore throat no hearing difficulty no ear pain - Cardiovascular: No syncope, no chest pain, no palpitations - Gastrointestinal: No nausea vomiting or diarrhea - Endocrine: No polyuria polydipsia no heat intolerance - Genitourinary: No dysuria , no blood in urine Physical Exam General: No acute distress HEENT: No acute findings Neck: Supple Respiratory system: Able to talk in full sentences, no audible wheeze Cardiovascular: S1-S2 regular in rate and rhythm, blood pressure is 120/80 Gastrointestinal: No pain Extremities: No new findings, no swelling of ankles 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 awake oriented x3 motor sensory intact Skin: Normal turgor [facility] Medical History Lipid disorder Diabetes 1.5, managed as type 2 Hypertension, essential Gout Family History Maternal Grandmother Diabetes mellitus Social History Housing: House Alcohol intake: current Alcohol intake frequency: holidays/special occasions only Patient Tobacco Use Status: Never used Tobacco e-Cigarette/Vaping Use: Never Used service: No Current occupational status: employed Current occupation: [employer] Cognitive needs: No Hearing needs: No Vision needs: Yes Questionnaire Thrive Questionnaire Date Thrive assessed: 08/10/24 I am a: Patient What is your living situation today?: I have a steady place to live Within the past 12 months, did the food you bought not last and you didn't have the money to get more?: Never true Within the past 12 months, did you worry whether your food would run out before you got money to buy more?: Never true Do you have trouble paying for medicines?: No Do you have trouble getting transportation to medical appointments?: No Do you have trouble paying your heating and electricity bill?: No Do you have trouble taking care of your child, family member or friend?: No Do you have trouble with day-to-day activities such as bathing, preparing meals, shopping, managing finances, etc.?: No Are you currently unemployed and looking for a job?: No Are you interested in more education?: No Please select the resources that you would like help with: None Currently or been in a relationship where the following occur: No concerns reported THRIVE Score: 0 COLT-7 AMB Questionnaire COLT-7 Date COLT - 7 assessed: 08/10/24 Source: Developed by Drs. Antoine June, Susan Phillips, Tico Plummer and colleagues, with an educational meliza from [employer]. Physical exam (Primary Care) Vital Signs: Last Vital Signs Temp 99.1 F 03/08/25 08:06 Pulse 87 03/08/25 08:06 Resp 18 03/08/25 08:06 BP 120/80 03/08/25 08:06 Pulse Ox 95 03/08/25 08:06 Oxygen Delivery Method Room Air 03/08/25 08:06 BMI result Body Mass Index 35.1 Tobacco/Smoking Status: Tobacco use Status Tobacco use date assessed 03/08/25 03/08/25 08:11 Patient Tobacco Use Status Never used Tobacco 03/08/25 08:11 e-Cigarette/Vaping Use Never Used 03/08/25 08:11 Thrive Assessment: Date of Thrive Assessment Date Thrive assessed 08/10/24 03/08/25 08:11 Currently or been in a relationship where the following occur: No concerns reported Coding Level of Care Code Est Pt Level 4 (56908) Diagnoses Diabetes 1.5, managed as type 2 E13.9 Hypertension, essential I10 Idiopathic chronic gout without tophus, unspecified site M1A.00X0 Gout site: unspecified site Gout etiology: idiopathic Chronicity: chronic Presence of tophus: without tophus Lipid disorder E78.9 Class 1 obesity due to excess calories with serious comorbidity and body mass index (BMI) of 33.0 to 33.9 in adult E66.09; Z68.33 Obesity classification: adult class 1 (BMI 30 - 34.9) Serious obesity comorbidity presence: with serious comorbidity Body mass index: BMI 33.0-33.9 LFT elevation R79.89 Microalbuminuria R80.9 Assessment & Plan Assessment & Plan (1) Diabetes 1.5, managed as type 2: Code(s): E13.9 - Other specified diabetes mellitus without complications Category: Medical (2) Hypertension, essential: Code(s): I10 - Essential (primary) hypertension Category: Medical (3) Gout: Code(s): M10.9 - Gout, unspecified Category: Medical Qualifiers: Gout site: unspecified site Gout etiology: idiopathic Chronicity: chronic Presence of tophus: without tophus Qualified Code(s): M1A.00X0 - Idiopathic chronic gout, unspecified site, without tophus (tophi) (4) Lipid disorder: Code(s): E78.9 - Disorder of lipoprotein metabolism, unspecified Category: Medical (5) Obesity due to excess calories: Code(s): E66.09 - Other obesity due to excess calories Category: Medical Qualifiers: Obesity classification: adult class 1 (BMI 30 - 34.9) Serious obesity comorbidity presence: with serious comorbidity Body mass index: BMI 33.0-33.9 Qualified Code(s): E66.09 - Other obesity due to excess calories; Z68.33 - Body mass index [BMI] 33.0-33.9, adult (6) LFT elevation: Code(s): R79.89 - Other specified abnormal findings of blood chemistry Category: Medical (7) Microalbuminuria: Code(s): R80.9 - Proteinuria, unspecified Category: Medical Plan Chief Complaint The patient presents for a follow-up to manage elevated blood glucose levels and liver function concerns. History of Present Illness The patient is a 44-year-old male presenting with concerns related to type 2 diabetes management and liver enzyme elevations. Type 2 Diabetes Mellitus: - The patient reports an increase in blood sugar levels, with a recent HbA1c level of 8.7%, up from 7.6% in October. - The patient attributes the increase to higher consumption of Gatorade due to hot working conditions. - Currently on multiple oral antidiabetic medications. - Denies chest pains, shortness of breath, or swelling of ankles. - Has been informed that continued poor control may lead to more severe interventions, including possible transition to injectable medication if needed. Elevated Liver Enzymes: - The patient has noticed worsening liver enzyme tests, suspected due to fatty liver disease. - There is a concern for potential ongoing liver-related complications if not addressed. 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 - Reports high Gatorade consumption at work due to hot conditions. - Reports no issues coordinating medication adherence with third shift work. Diagnostic Results: - Labs: Recent HbA1c 8.7%; CBC within normal limits; Electrolytes normal; Elevated liver enzymes. Problem List - Type 2 Diabetes Mellitus - Elevated Liver Enzymes - Gout - Hyperlipidemia - HTN - obesity Patient Instructions - Adjust your diet to help control blood sugar levels. - Bring your own low-sugar drinks and food to work to prevent blood sugar spikes. - Monitor sugar levels regularly as instructed. - Consider the dietary impacts on your liver health. - Review medication administration guidelines if injectable medication becomes necessary. - Follow up for routine HbA1c and liver testing in three months.
== END 2025-03-08 08:20 | disposition home or self-care (01) ==
LOC: HO.HMCC 07:54
PROVIDERS: PCP Internal Medicine; Visit Provider Internal Medicine
DX: E13.9 Other specified diabetes mellitus without complications (principal); I10 Essential (primary) hypertension; M1A.00X0 Idiopathic chronic gout, unspecified site, without tophus (tophi); E78.9 Disorder of lipoprotein metabolism, unspecified; E66.09 Other obesity due to excess calories; Z68.33 Body mass index [BMI] 33.0-33.9, adult; R79.89 Other specified abnormal findings of blood chemistry; R80.9 Proteinuria, unspecified

== ENCOUNTER 2025-06-11 08:57 | Outpatient (AMB) | payer BC, SELFPAY ==
--- NOTE | 2025-06-11 09:01 | A.OFFPC_ITS ---
Vital Signs 06/11/25 09:02 Height 5 ft 3 in Weight 202 lb BMI 35.8 BP 118/76 Blood Pressure Location Rt brachial Position Sitting Respiration 17 Pulse 101 H Pulse Source Pulse Oximeter Temp 99.1 F Temp Source Oral Pulse Oximetry (%) 95 Oxygen Delivery Method Room Air Intake Visit Reasons: 3 months f/up Allergies No Known Allergies (No Known Allergies*) Allergy (Verified 06/11/25 09:04) Medication List - Last Reconciled 06/11/25 by Abdelrahman Clayton MD allopurinol 300 mg PO DAILY atorvastatin 20 mg PO DAILY 90 days glipizide 10 mg PO BID 90 days lisinopril 20 mg PO DAILY 90 days metformin 1,000 mg PO BID pioglitazone 45 mg PO DAILY Tobacco use date assessed: 06/11/25 Dental Screening Dental Screen Date: 11/20/24 HPI 3 months f/up HPI Details History of Present Illness The patient is a 44-year-old male presenting for follow-up and management of type 2 diabetes mellitus. Type 2 Diabetes Mellitus: - The patient's A1c was 8.7% on labs march. - His current medications include glipiz mark anthony 10 mg BID, metformin 1 g BID, and pioglitazone 45 mg. - He reports inconsistent home blood glu cose monitoring. - The patient reports hypoglycemia cause d by glipizide. 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 - He is now willing to start an injectab le medication for diabetes. Hyperlipidemia: - The patient is taking atorvastatin 20 mg. Hypertension: - The patient is on lisinopril 20 mg for hypertension. - His blood pressure at the visit was 11 8/76 mmHg. Gout: - The patient is taking allopurinol 300 mg. - He denies any current gout-related cande n. Vitamin D Deficiency: - The patient reports taking vitamin D s upplements intermittently. Medical History: - Type 2 diabetes mellitus - Hyperlipidemia - Hypertension - Gout - Vitamin D deficiency Medications: - Allopurinol 300 mg for gout - Atorvastatin 20 mg - Glipizide 10 mg twice daily for diabet es - Lisinopril 20 mg for hypertension - Metformin 1 g twice daily for diabetes - Pioglitazone 45 mg for diabetes - Vitamin D supplement, taken intermitte ntly Social History: - Employment: Works third shift, which h e reports makes it difficult to adhere to his medication schedule. Diagnostic Results: - Labs (March): A1c was 8.7%, CBC was g ood, electrolytes and kidney functions were okay, and liver enzymes were stable but slightly elevated. - In-office tests: [id number] A1c is 10.5%. Today - Vitals: Blood pressure is 118/76 mmHg. Problem List - Type 2 diabetes mellitus uncontrolled - Hyperlipidemia - Hypertension - Gout - Vitamin D deficiency - Preventative care: Influenza vaccinati on Plan - The patient's A1c is 10.5%, indicating uncontrolled diabetes. - Glipizide will be discontinued due to patient-reported hypoglycemia. - Trulicity, 1.5 mg a once-weekly inject able, will be initiated to improve glycemic control and simplify the regimen. - The patient will continue his other or al diabetes medications, including metformin and pioglitazone. - The patient is advised to monitor his blood glucose regularly after starting Trulicity - A nurse visit will be scheduled to pro vide education on self-administering the injectable medication. - An order for a fasting blood test will be placed, to be completed before the next visit in August. - The patient will be advised to take hi s vitamin D supplement regularly. - The patient is up to date on his flu v accine. - Follow-up is scheduled for a physical exam on August 16. Review of Systems - General: No fever no chills - Neurological: No headaches no dizziness - Ear nose throat: No sore throat no hearing difficulty no ear pain - Cardiovascular: No syncope, no chest pain, no palpitations - Gastrointestinal: No nausea vomiting or diarrhea - Endocrine: No polyuria polydipsia no heat intolerance - Genitourinary: No dysuria , no blood in urine Physical Exam - General: No acute distress - HEENT: No acute findings - Neck: Supple - Respiratory system: Able to talk in f ull sentences, no audible wheeze - Cardiovascular: S1-S2 regular in rate and rhythm - Gastrointestinal: No pain - Extremities: No new findings - [employer] 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 oriented x3 motor in tact - Skin: Normal turgor [facility] Medical History Lipid disorder Diabetes 1.5, managed as type 2 Hypertension, essential Gout Family History Maternal Grandmother Diabetes mellitus Social History Housing: House Alcohol intake: current Alcohol intake frequency: holidays/special occasions only Patient Tobacco Use Status: Never used Tobacco e-Cigarette/Vaping Use: Never Used service: No Current occupational status: employed Current occupation: [employer] Cognitive needs: No Hearing needs: No Vision needs: Yes Questionnaire PHQ-9 Over the last 2 weeks, how often have you been bothered by any of the following problems? 1. Little interest or pleasure in doing things: not at all 2. Feeling down, depressed, or hopeless: not at all 3. Trouble falling or staying asleep, or sleeping too much: not at all 4. Feeling tired or having little energy: not at all 5. Poor appetite or overeating: not at all 6. Feeling bad about yourself - or that you are a failure or have let yourself or your family down: not at all 7. Trouble concentrating on things, such as reading the newspaper or watching television: not at all 8. Moving or speaking so slowly that other people could have noticed. Or the opposite - being so fidgety or restless that you have been moving around a lot more than usual: not at all 9. Thoughts that you would be better off or of hurting yourself in some way: not at all Total score: 0 Depression Screening Interpretation: Negative Depression Screening Done: Yes 34612 - PHQ-9 Billing: Yes Source: Developed by Drs. Antoine June, Susan Phillips, Tico Plummer and colleagues, with an educational meliza from [employer]. Thrive Questionnaire Date Thrive assessed: 08/10/24 I am a: Patient What is your living situation today?: I have a steady place to live Within the past 12 months, did the food you bought not last and you didn't have the money to get more?: Never true Within the past 12 months, did you worry whether your food would run out before you got money to buy more?: Never true Do you have trouble paying for medicines?: No Do you have trouble getting transportation to medical appointments?: No Do you have trouble paying your heating and electricity bill?: No Do you have trouble taking care of your child, family member or friend?: No Do you have trouble with day-to-day activities such as bathing, preparing meals, shopping, managing finances, etc.?: No Are you currently unemployed and looking for a job?: No Are you interested in more education?: No Please select the resources that you would like help with: None Currently or been in a relationship where the following occur: No concerns reported THRIVE Score: 0 COLT-7 AMB Questionnaire COLT-7 Date COLT - 7 assessed: 08/10/24 Source: Developed by Drs. Antoine June, Susan Phillips, Tico Plummer and colleagues, with an educational meliza from [employer]. Physical exam (Primary Care) Vital Signs: Last Vital Signs Temp 99.1 F 06/11/25 09:02 Pulse 101 H 06/11/25 09:02 Resp 17 06/11/25 09:02 BP 118/76 06/11/25 09:02 Pulse Ox 95 06/11/25 09:02 Oxygen Delivery Method Room Air 06/11/25 09:02 BMI result Body Mass Index 35.8 Tobacco/Smoking Status: Tobacco use Status Tobacco use date assessed 06/11/25 06/11/25 09:09 Patient Tobacco Use Status Never used Tobacco 06/11/25 09:01 e-Cigarette/Vaping Use Never Used 06/11/25 09:01 PHQ-9: PHQ-9 Score PHQ-9: Total score 0 06/11/25 09:25 Depression Screening Interpretation: Negative Thrive Assessment: Date of Thrive Assessment Date Thrive assessed 08/10/24 06/11/25 09:01 Currently or been in a relationship where the following occur: No concerns reported Results AMB Hemoglobin A1c AMB Hemoglobin A1c 10.5 % Last Edit by PEDRO Zavaleta on 06/11/25 09: 19 Results Reviewed Results Reviewed: Laboratory Last Values Hgb A1c (Clinic) 10.5 % (4.0-6.0) H 06/11/25 09:09 Coding Level of Care Code Est Pt Level 4 (64740) Diagnoses Uncontrolled type 2 diabetes mellitus with hyperglycemia E11.65 Diabetes mellitus type: type 2 Glycemic state: with hyperglycemia Hypertension, essential I10 Lipid disorder E78.9 Vitamin D deficiency E55.9 Class 1 obesity due to excess calories with serious comorbidity and body mass index (BMI) of 33.0 to 33.9 in adult E66.09; Z68.33 Body mass index: BMI 33.0-33.9 Obesity classification: adult class 1 (BMI 30 - 34.9) Serious obesity comorbidity presence: with serious comorbidity LFT elevation R79.89 Microalbuminuria R80.9 Idiopathic chronic gout without tophus, unspecified site [id number].[id number] Chronicity: chronic Gout etiology: idiopathic Gout site: unspecified site Presence of tophus: without tophus Additional Codes PHQ-9 - 01636 - PHQ-9 Billing: Yes ([id number]) Assessment & Plan Assessment & Plan (1) Uncontrolled diabetes mellitus: Category: Medical Qualifiers: Diabetes mellitus type: type 2 Glycemic state: with hyperglycemia Qualified Code(s): E11.65 - Type 2 diabetes mellitus with hyperglycemia (2) Hypertension, essential: Code(s): I10 - Essential (primary) hypertension Category: Medical (3) Lipid disorder: Code(s): E78.9 - Disorder of lipoprotein metabolism, unspecified Category: Medical (4) Vitamin D deficiency: Code(s): E55.9 - Vitamin D deficiency, unspecified Category: Medical (5) Obesity due to excess calories: Code(s): E66.09 - Other obesity due to excess calories Category: Medical Qualifiers: Body mass index: BMI 33.0-33.9 Obesity classification: adult class 1 (BMI 30 - 34.9) Serious obesity comorbidity presence: with serious comorbidity Qualified Code(s): E66.09 - Other obesity due to excess calories; Z68.33 - Body mass index [BMI] 33.0-33.9, adult (6) LFT elevation: Code(s): R79.89 - Other specified abnormal findings of blood chemistry Category: Medical (7) Microalbuminuria: Code(s): R80.9 - Proteinuria, unspecified Category: Medical (8) Gout: Code(s): M10.9 - Gout, unspecified Category: Medical Qualifiers: Chronicity: chronic Gout etiology: idiopathic Gout site: unspecified site Presence of tophus: without tophus Qualified Code(s): M1A.00X0 - Idiopathic chronic gout, unspecified site, without tophus (tophi) Plan Type 2 Diabetes Mellitus: - The patient's A1c was 8.7% on labs from March. - His current medications include glipizide 10 mg BID, metformin 1 g BID, and pioglitazone 45 mg. - He reports inconsistent home blood glucose monitoring. - The patient reports hypoglycemia caused by glipizide. 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 - He is now willing to start an injectable medication for diabetes. Hyperlipidemia: - The patient is taking atorvastatin 20 mg. Hypertension: - The patient is on lisinopril 20 mg for hypertension. - His blood pressure at the visit was 118/76 mmHg. Gout: - The patient is taking allopurinol 300 mg. - He denies any current gout-related pain. Vitamin D Deficiency: - The patient reports taking vitamin D supplements intermittently. 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 Diagnostic Results: - Labs (March): A1c was 8.7%, CBC was good, electrolytes and kidney functions were okay, and liver enzymes were stable but slightly elevated. - In-office tests: Blacv-fv-[id number] A1c is 10.5%. Today - Vitals: Blood pressure is 118/76 mmHg. Problem List - Type 2 diabetes mellitus uncontrolled - Hyperlipidemia - Hypertension - Gout - Vitamin D deficiency - Preventative care: Influenza vaccination - microalbuminuria Plan - The patient's A1c is 10.5%, indicating uncontrolled diabetes. - Glipizide will be discontinued due to patient-reported hypoglycemia. - Trulicity, 1.5 mg a once-weekly injectable, will be initiated to improve glycemic control and simplify the regimen. - The patient will continue his other oral diabetes medications, including metformin and pioglitazone. - The patient is advised to monitor his blood glucose regularly after starting Trulicity - A nurse visit will be scheduled to provide education on self-administering the injectable medication. - An order for a fasting blood test will be placed, to be completed before the next visit in August. - The patient will be advised to take his vitamin D supplement regularly. - The patient is up to date on his flu vaccine. - Follow-up is scheduled for a physical exam on August 16. Orders: Orders Complete Blood Count Auto Diff Today E13.9 - Other specified diabetes mellitus without complications, E55.9 - Vitamin D deficiency, unspecified, E66.09 - Other obesity due to excess calories, E78.9 - Disorder of lipoprotein metabolism, unspecified, I10 - Essential (primary) hypertension, M1A.00X0 - Idiopathic chronic gout, unspecified site, without tophus (tophi), R79.89 - Other specified abnormal findings of blood chemistry, R80.9 - Proteinuria, unspecified, Z68.33 - Body mass index [BMI] 33.0-33.9, adult Lipid Panel Today E13.9 - Other specified diabetes mellitus without complications, E55.9 - Vitamin D deficiency, unspecified, E66.09 - Other obesity due to excess calories, E78.9 - Disorder of lipoprotein metabolism, unspec ified, I10 - Essential (primary) hypertension, M1A.00X0 - Idiopathic chronic gout, unspecified site, without tophus (tophi), R79.89 - Other specified abnormal findings of blood chemistry, R80.9 - Proteinuria, unspecified, Z68.33 - Body mass index [BMI] 33.0-33.9, adult Vitamin D 25-OH (D2 and D3) Today E13.9 - Other specified diabetes mellitus without complications, E55.9 - Vitamin D deficiency, unspecified, E66.09 - Other obesity due to excess calories, E78.9 - Disorder of lipoprotein metabolism, unspecified, I10 - Essential (primary) hypertension, M1A.00X0 - Idiopathic chronic gout, unspecified site, without tophus (tophi), R79.89 - Other specified abnormal findings of blood chemistry, R80.9 - Proteinuria, unspecified, Z68.33 - Body mass index [BMI] 33.0-33.9, adult TSH reflex Free T4 Today E13.9 - Other specified diabetes mellitus without complications, E55.9 - Vitamin D deficiency, unspecified, E66.09 - Other obesity due to excess calories, E78.9 - Disorder of lipoprotein metabolism, unspecified, I10 - Essential (primary) hypertension, M1A.00X0 - Idiopathic chronic gout, unspecified site, without tophus (tophi), R79.89 - Other specified abnormal findings of blood chemistry, R80.9 - Proteinuria, unspecified, Z68.33 - Body mass index [BMI] 33.0-33.9, adult Microalbumin, Random (w Creat) Today E13.9 - Other specified diabetes mellitus without complications, E55.9 - Vitamin D deficiency, unspecified, E66.09 - Other obesity due to excess calories, E78.9 - Disorder of lipoprotein metabolism, unspecified, I10 - Essential (primary) hypertension, M1A.00X0 - Idiopathic chronic gout, unspecified site, without tophus (tophi), R79.89 - Other specified abnormal findings of blood chemistry, R80.9 - Proteinuria, unspecified, Z68.33 - Body mass index [BMI] 33.0-33.9, adult AMB Hemoglobin A1c Today Z13.9 - Encounter for screening, unspecified Hemoglobin A1c Today E13.9 - Other specified diabetes mellitus without complications, E55.9 - Vitamin D deficiency, unspecified, E66.09 - Other obesity due to excess calories, E78.9 - Disorder of lipoprotein metabolism, unspecified, I10 - Essential (primary) hypertension, M1A.00X0 - Idiopathic chronic gout, unspecified site, without tophus (tophi), R79.89 - Other specified abnormal findings of blood chemistry, R80.9 - Proteinuria, unspecified, Z68.33 - Body mass index [BMI] 33.0-33.9, adult [place]. Panel Fast Today E13.9 - Other specified diabetes mellitus without complications, E55.9 - Vitamin D deficiency, unspecified, E66.09 - Other obesity due to excess calories, E78.9 - Disorder of lipoprotein metabolism, unspecified, I10 - Essential (primary) hypertension, M1A.00X0 - Idiopathic chronic gout, unspecified site, without tophus (tophi), R79.89 - Other specified abnormal findings of blood chemistry, R80.9 - Proteinuria, unspecified, Z68.33 - Body mass index [BMI] 33.0-33.9, adult Medications: New dulaglutide (Trulicity) 1.5 mg (0.5 mL) subcut QWEEK 2.5 mL 0RF 30 days Discontinued glipizide Discontinued Reason: Doctor's Order 10 mg PO BID 90 days 180 tabs 0RF
[2025-06-11 09:02] VITALS: BP 118/76; PULSE 101; RESP 17; TEMP 37.3; O2SAT 95; BMI 35.8
== END 2025-06-11 10:00 | disposition home or self-care (01) ==
LOC: HO.HMCC 08:58
PROVIDERS: PCP Internal Medicine; Visit Provider Internal Medicine
DX: E11.65 Type 2 diabetes mellitus with hyperglycemia (principal); I10 Essential (primary) hypertension; E78.9 Disorder of lipoprotein metabolism, unspecified; E55.9 Vitamin D deficiency, unspecified; E66.09 Other obesity due to excess calories; Z68.33 Body mass index [BMI] 33.0-33.9, adult; R79.89 Other specified abnormal findings of blood chemistry; R80.9 Proteinuria, unspecified; M1A.00X0 Idiopathic chronic gout, unspecified site, without tophus (tophi); Z13.9 Encounter for screening, unspecified

== ENCOUNTER → 2025-06-11 08:57 | Outpatient (BNVA) | payer BC, SELFPAY | PROVIDERS: PCP Internal Medicine; Visit Provider Internal Medicine | DX: I10 Essential (primary) hypertension (principal); E11.65 Type 2 diabetes mellitus with hyperglycemia; E78.5 Hyperlipidemia, unspecified; M1A.00X0 Idiopathic chronic gout, unspecified site, without tophus (tophi); E78.9 Disorder of lipoprotein metabolism, unspecified; E55.9 Vitamin D deficiency, unspecified; E66.09 Other obesity due to excess calories; R79.89 Other specified abnormal findings of blood chemistry; R80.9 Proteinuria, unspecified; Z79.84 Long term (current) use of oral hypoglycemic drugs | CPT/HCPCS: 83036; 96127 ==